=== PATIENT | male | born 1955 | race Caucasian/White ===

== ENCOUNTER 2023-06-13 08:45 | Outpatient (CLI) | payer MEDICARE | END 2023-06-13 08:46 | disposition critical access hospital (66) | LOC: EMS 08:45 | DX: K92.1 Melena (principal) | CPT/HCPCS: A0425; A0429 ==

== ENCOUNTER 2023-06-13 09:08 | Emergency (ER) | payer MEDICARE ==
[2023-06-13 09:38] LABS: BASOPHILS # (AUTO) 0.1 10^3/uL (0.0-0.1); BASOPHILS % (AUTO) 0.7 %; EOSINOPHILS # (AUTO) 0.1 10^3/uL (0.0-0.7); EOSINOPHILS % (AUTO) 1.6 %; HCT - HEMATOCRIT 38.5 % (42.0-52.0); HGB - HEMOGLOBIN 12.8 g/dL (14.0-18.0); LYMPHOCYTES # (AUTO) 0.7 10^3/uL (1.5-3.5); LYMPHOCYTES % (AUTO) 10.5 %; MEAN CORPUSCULAR HEMOGLOBIN 30.4 pg (27.0-31.0); MEAN CORPUSCULAR HGB CONC 33.2 g/dL (32.0-36.0); MEAN CORPUSCULAR VOLUME 91.4 fL (80.0-94.0); MEAN PLATELET VOLUME 9.4 fL (7.4-11.4); MONOCYTES # (AUTO) 0.9 10^3/uL (0.0-1.0); MONOCYTES % (AUTO) 13.6 %; NEUTROPHILS # (AUTO) 5.1 10^3/uL (1.5-6.6); NEUTROPHILS % (AUTO) 73.2 %; PLT - PLATELET COUNT 182 10^3/uL (130-450); RED BLOOD COUNT 4.21 10^6/uL (4.70-6.10); RED CELL DISTRIBUTION WIDTH 14.1 % (12.0-15.0); WHITE BLOOD COUNT 6.9 x10^3/uL (4.8-10.8)
[2023-06-13 09:52] LABS: ALBUMIN 3.1 g/dL (3.2-5.5); ALBUMIN/GLOBULIN RATIO 0.8 (1.0-2.2); BILIRUBIN,TOTAL 0.6 mg/dL (0.2-1.0); CALCIUM 8.9 mg/dL (8.5-10.3); CREATININE 0.8 mg/dL (0.6-1.3); PARTIAL THROMBOPLASTIN TIME 37.5 secs (24.9-33.3); POTASSIUM 4.1 mmol/L (3.5-4.5); TOTAL PROTEIN 7.2 g/dL (6.4-8.9)
[2023-06-13 09:57] LABS: INR 1.3 (0.8-1.2); PT - PROTHROMBIN TIME 14.3 secs (9.9-12.6)
[2023-06-13 10:13] LABS: BILIRUBIN,URINE NEGATIVE (NEGATIVE); GLUCOSE, URINE (UA) NEGATIVE (NEGATIVE); KETONES,URINE (UA) NEGATIVE (NEGATIVE); LEUKOCYTE ESTERASE, URINE LARGE (NEGATIVE); NITRITE,URINE POSITIVE (NEGATIVE); OCCULT BLOOD,URINE MODERATE (NEGATIVE); PH,URINE 6.5 PH (5.0-7.5); PROTEIN,URINE TRACE mg/dL (NEGATIVE); UROBILINOGEN,URINE 0.2 (NORMAL) E.U./dL (NORMAL)
[2023-06-13 10:21] LABS: BACTERIA,URINE Moderate /HPF (None Seen); CLARITY,URINE CLOUDY (CLEAR); SQUAMOUS EPITHELIAL CELL,UR RARE Squamous (<= Few); WBC,URINE >25 /HPF (0-3)
[2023-06-13] MEDS ORDERED: cefTRIAXone 1 GM VIAL IVP STA (10:37)
[2023-06-13] MEDS ORDERED: PANTOPRAZOLE 40 MG VIAL IVP STA (10:37)
--- NOTE | 2023-06-13 10:37 | ED Physician Documentation ---
History of Present Illness - Stated complaint Stated Complaint: BLOODY STOOL - Chief complaint Chief Complaint: Abd Pain - History obtained from History obtained from: Patient - History of Present Illness Timing: Today Pain level max: 0 Pain level now: 0 - Additonal information Additional information: 68-year-old male presents to the emergency department with dark stool x1. Has a history of hepatitis C with cirrhosis. No fever. No hematemesis. No history of varices. No bleeding currently. No abdominal pain. Nothing makes it better or worse. No dyspnea. No chest pain. Eating and drinking normally. Review of Systems Constitutional: denies: Fever, Chills GI: denies: Vomiting, Diarrhea Skin: denies: Rash Musculoskeletal: denies: Neck pain, Back pain Neurologic: denies: Headache PD PAST MEDICAL HISTORY - Past Medical History Past Medical History: Yes GI: Hepatitis - Past Surgical History Past Surgical History: Yes General: Cholecystectomy - Present Medications Home Medications: Ambulatory Orders Medication Instructions Recorded Confirmed Esomeprazole Magnesium [Nexium] 40 mg PO DAILY #30 cap 06/13/23 Furosemide [Lasix] 80 mg PO DAILY 06/13/23 06/13/23 Spironolactone [Aldactone] 100 mg PO DAILY 06/13/23 06/13/23 cephALEXin [Keflex] 500 mg PO Q6H #28 cap 06/13/23 rifAXIMin [Xifaxan] 550 mg PO BID 06/13/23 06/13/23 - Allergies Allergies/Adverse Reactions: Allergies Allergy/AdvReac Type Severity Reaction Status Date / Time No Known Drug Allergies Allergy Verified 06/13/23 09:25 - Social History Does the pt smoke?: Yes Smoking Status: Current every day smoker Does the pt drink ETOH?: No Does the pt have substance abuse?: No - Immunizations Immunizations are current?: Yes PD ED PE NORMAL - Vitals Vital signs reviewed: Yes - General General: Alert and oriented X 3, No acute distress - HEENT HEENT: Moist mucous membranes - Neck Neck: Supple, no meningeal sign - Cardiac Cardiac: RRR, Strong equal pulses - Respiratory Respiratory: No respiratory distress, Clear bilaterally - Abdomen Abdomen: Soft, Non tender, Non distended - Rectal Rectal: Other (dark brown stool in rectal vault. hemorrhoids present. non bleeding. ) - Back Back: No CVA TTP, No spinal TTP - Derm Derm: Warm and dry - Extremities Extremities: No edema, No calf tenderness / cord - Neuro Neuro: Alert and oriented X 3 - Psych Psych: Normal mood, Normal affect Results - Vitals Vitals: Vital Signs - 24 hr 06/13/23 06/13/23 06/13/23 09:20 11:25 12:44 Temperature 36.1 C L 36.7 C Heart Rate 86 73 66 Respiratory 18 16 18 Rate Blood Pressure 149/100 H 137/68 H 139/86 H O2 Saturation 99 98 100 Oxygen O2 Source Room air - Labs Labs: Microbiology 06/13/23 10:19 Occult Blood - Final Stool Laboratory Tests 06/13/23 06/13/23 06/13/23 09:31 09:31 09:31 WBC 6.9 RBC 4.21 L Hgb 12.8 L Hct 38.5 L MCV 91.4 MCH 30.4 MCHC 33.2 RDW 14.1 Plt Count 182 MPV 9.4 Neut # (Auto) 5.1 Lymph # (Auto) 0.7 L [place] # (Auto) 0.9 Eos # (Auto) 0.1 Baso # (Auto) 0.1 Absolute Nucleated RBC 0.00 Nucleated RBC % 0.0 PT 14.3 H INR 1.3 H APTT 37.5 H Sodium 133 L Potassium 4.1 Chloride 103 Carbon Dioxide 26 Anion Gap 4.0 L BUN 25 H Creatinine 0.8 Estimated GFR (MDRD) 96 Glucose 102 Calcium 8.9 Total Bilirubin 0.6 AST 42 ALT 26 Alkaline Phosphatase 115 Total Protein 7.2 Albumin 3.1 L Globulin 4.1 Albumin/Globulin Ratio 0.8 L Lipase 30 Urine Color Urine Clarity Urine pH Ur Specific [place] Urine Protein Urine Glucose (UA) Urine Ketones Urine Occult Blood Urine Nitrite Urine Bilirubin Urine Urobilinogen Ur Leukocyte Esterase Urine RBC Urine WBC Ur Squamous Epith Cells Urine Bacteria Ur Microscopic Review Urine Culture Comments 06/13/23 06/13/23 10:07 12:09 WBC 7.8 RBC 4.58 L Hgb 13.7 L Hct 41.8 L MCV 91.3 MCH 29.9 MCHC 32.8 RDW 14.2 Plt Count 192 MPV 9.6 Neut # (Auto) 5.8 Lymph # (Auto) 1.0 L [place] # (Auto) 0.8 Eos # (Auto) 0.1 Baso # (Auto) 0.0 Absolute Nucleated RBC 0.00 Nucleated RBC % 0.0 PT INR APTT Sodium Potassium Chloride Carbon Dioxide Anion Gap BUN Creatinine Estimated GFR (MDRD) Glucose Calcium Total Bilirubin AST ALT Alkaline Phosphatase Total Protein Albumin Globulin Albumin/Globulin Ratio Lipase Urine Color YELLOW Urine Clarity CLOUDY Urine pH 6.5 Ur Specific [place] 1.020 Urine Protein TRACE Urine Glucose (UA) NEGATIVE Urine Ketones NEGATIVE Urine Occult Blood MODERATE H Urine Nitrite POSITIVE H Urine Bilirubin NEGATIVE Urine Urobilinogen 0.2 (NORMAL) Ur Leukocyte Esterase LARGE H Urine RBC 11-25 H Urine WBC >25 H Ur Squamous Epith Cells RARE Squamous Urine Bacteria Moderate H Ur Microscopic Review INDICATED Urine Culture Comments INDICATED PD Medical Decision Making - ED course Complexity details: reviewed results, re-evaluated patient, considered differential, d/w patient ED course: Patient with an episode of dark stool earlier today. None since. No abdominal pain. No hematemesis. No change in his hemoglobin hematocrit after 2 hours. Normal vitals. Placed on a PPI. No further bleeding here. No history of varices. Recommend endoscopy and colonoscopy as an outpatient. Strict return precautions given. Patient counseled regarding signs and symptoms for which I believe and urgent re-evaluation would be necessary. Patient with good understanding of and agreement to plan and is comfortable going home at this time This document was made in part using voice recognition software. While efforts are made to proofread this document, sound alike and grammatical errors may occur. Departure - Departure Disposition: 01 Home, Self Care Clinical Impression: GI bleed Qualifiers: GI bleed type/associated pathology: unspecified gastrointestinal hemorrhage type Qualified Code(s): K92.2 - Gastrointestinal hemorrhage, unspecified Urinary tract infection Qualifiers: Urinary tract infection type: acute cystitis Hematuria presence: without hematuria Qualified Code(s): N30.00 - Acute cystitis without hematuria Condition: Good Instructions: ED Hematochezia Stable, ED Bleed UGI Stable Follow-Up: your,doctor in 3 days [Other] Prescriptions: cephALEXin [Keflex] 500 mg PO Q6H #28 cap Esomeprazole Magnesium [Nexium] 40 mg PO DAILY #30 cap Comments: Your prescriptions were sent to [facility] in [place]. Please take the medications as prescribed. Please follow-up with your doctor for further care, return for any further bleeding, abdominal pain, fevers, shortness of breath, chest pain or any other new or worrisome symptoms. You should have an outpatient endoscopy and colonoscopy scheduled as well. Forms: PCP List
[2023-06-13 12:13] LABS: BASOPHILS % (AUTO) 0.5 %; EOSINOPHILS # (AUTO) 0.1 10^3/uL (0.0-0.7); EOSINOPHILS % (AUTO) 1.3 %; HCT - HEMATOCRIT 41.8 % (42.0-52.0); HGB - HEMOGLOBIN 13.7 g/dL (14.0-18.0); LYMPHOCYTES % (AUTO) 13.2 %; MEAN CORPUSCULAR HEMOGLOBIN 29.9 pg (27.0-31.0); MEAN CORPUSCULAR HGB CONC 32.8 g/dL (32.0-36.0); MEAN CORPUSCULAR VOLUME 91.3 fL (80.0-94.0); MEAN PLATELET VOLUME 9.6 fL (7.4-11.4); MONOCYTES # (AUTO) 0.8 10^3/uL (0.0-1.0); MONOCYTES % (AUTO) 10.5 %; NEUTROPHILS # (AUTO) 5.8 10^3/uL (1.5-6.6); NEUTROPHILS % (AUTO) 74.2 %; PLT - PLATELET COUNT 192 10^3/uL (130-450); RED BLOOD COUNT 4.58 10^6/uL (4.70-6.10); RED CELL DISTRIBUTION WIDTH 14.2 % (12.0-15.0); WHITE BLOOD COUNT 7.8 x10^3/uL (4.8-10.8)
[2023-06-13 12:49] VITALS: BP 139/86; O2SAT 100
== END 2023-06-13 12:59 | disposition home or self-care (01) ==
LOC: ED 09:08
DX: K92.2 Gastrointestinal hemorrhage, unspecified (principal); N30.00 Acute cystitis without hematuria; F17.200 Nicotine dependence, unspecified, uncomplicated; Z79.899 Other long term (current) drug therapy
CPT/HCPCS: 36415; 80053; 81001; 81003; 82272; 83690; 85025; 85610; 85730; 87077; 87086; 87181; 96374; 96375; 99283

== ENCOUNTER 2023-06-17 10:33 | Emergency (ER) | payer MEDICARE ==
[2023-06-17 11:25] LABS: BASOPHILS % (AUTO) 0.6 %; EOSINOPHILS # (AUTO) 0.1 10^3/uL (0.0-0.7); EOSINOPHILS % (AUTO) 0.7 %; HCT - HEMATOCRIT 39.8 % (42.0-52.0); HGB - HEMOGLOBIN 13.3 g/dL (14.0-18.0); LYMPHOCYTES # (AUTO) 0.8 10^3/uL (1.5-3.5); LYMPHOCYTES % (AUTO) 11.1 %; MEAN CORPUSCULAR HEMOGLOBIN 30.1 pg (27.0-31.0); MEAN CORPUSCULAR HGB CONC 33.4 g/dL (32.0-36.0); MEAN PLATELET VOLUME 9.7 fL (7.4-11.4); MONOCYTES # (AUTO) 0.7 10^3/uL (0.0-1.0); MONOCYTES % (AUTO) 10.7 %; NEUTROPHILS # (AUTO) 5.2 10^3/uL (1.5-6.6); NEUTROPHILS % (AUTO) 76.6 %; PLT - PLATELET COUNT 196 10^3/uL (130-450); RED BLOOD COUNT 4.42 10^6/uL (4.70-6.10); RED CELL DISTRIBUTION WIDTH 13.9 % (12.0-15.0); WHITE BLOOD COUNT 6.8 x10^3/uL (4.8-10.8)
[2023-06-17 11:39] LABS: ALBUMIN 3.3 g/dL (3.2-5.5); ALBUMIN/GLOBULIN RATIO 0.8 (1.0-2.2); CALCIUM 8.3 mg/dL (8.5-10.3); CREATININE 0.8 mg/dL (0.6-1.3); TOTAL PROTEIN 7.6 g/dL (6.4-8.9)
--- NOTE | 2023-06-17 11:40 | ED Physician Documentation ---
History of Present Illness - Stated complaint Stated Complaint: ABD FLUID - Chief complaint Chief Complaint: Abd Pain - History obtained from History obtained from: Patient - Additonal information Additional information: 68-year-old male who has a history of cirrhosis presents requesting paracentesis. The patient has had regular paracenteses in the past but recently moved to the local area after living in [place] a while. He states he has a new primary care appointment coming up but feels like he needs to be drained before they can arrange for it. He denies any new concerns today, has no abdominal tenderness, no fever or chills, no nausea or vomiting. He denies any chest pain or difficulty breathing, no lower extremity swelling. He does state that during his move appear, he did not take his diuretics for several days but has since restarted them. He is no longer using alcohol. Review of Systems Constitutional: reports: Reviewed and negative Cardiac: reports: Reviewed and negative Respiratory: reports: Reviewed and negative GI: reports: Abdominal Swelling. denies: Abdominal Pain, Nausea, Vomiting, Constipation, Diarrhea, Hematemesis, Bloody / black stool : reports: Reviewed and negative Skin: reports: Reviewed and negative Musculoskeletal: reports: Reviewed and negative Neurologic: reports: Reviewed and negative Psychiatric: reports: Reviewed and negative Endocrine: reports: Reviewed and negative Immunocompromised: reports: Reviewed and negative PD PAST MEDICAL HISTORY - Past Medical History Past Medical History: Yes GI: Hepatitis, Cirrhosis, Other - Past Surgical History Past Surgical History: Yes General: Cholecystectomy - Present Medications Home Medications: Ambulatory Orders Medication Instructions Recorded Confirmed Esomeprazole Magnesium [Nexium] 40 mg PO DAILY #30 cap 06/13/23 Furosemide [Lasix] 80 mg PO DAILY 06/13/23 06/13/23 Spironolactone [Aldactone] 100 mg PO DAILY 06/13/23 06/13/23 cephALEXin [Keflex] 500 mg PO Q6H #28 cap 06/13/23 rifAXIMin [Xifaxan] 550 mg PO BID 06/13/23 06/13/23 - Allergies Allergies/Adverse Reactions: Allergies Allergy/AdvReac Type Severity Reaction Status Date / Time No Known Drug Allergies Allergy Verified 06/17/23 10:54 - Social History Does the pt smoke?: Yes Smoking Status: Current every day smoker Does the pt drink ETOH?: No Does the pt have substance abuse?: No - Immunizations Immunizations are current?: Yes PD ED PE NORMAL - Vitals Vital signs reviewed: Yes - General General: Alert and oriented X 3, No acute distress, Well developed/nourished - HEENT HEENT: Atraumatic, Moist mucous membranes - Neck Neck: Supple, no meningeal sign, No JVD - Cardiac Cardiac: RRR, No murmur - Respiratory Respiratory: No respiratory distress, Clear bilaterally - Abdomen Abdomen: Normal bowel sounds, Non tender, Other (Ascites, non tender. active) - Derm Derm: Normal color, Warm and dry, No rash - Extremities Extremities: No deformity, No tenderness to palpate, Normal ROM s pain, No edema, No calf tenderness / cord - Neuro Neuro: Alert and oriented X 3 Eye Opening: Spontaneous Motor: Obeys Commands Verbal: Oriented GCS Score: 15 - Psych Psych: Normal mood, Normal affect Results - Vitals Vitals: Vital Signs - 24 hr 06/17/23 06/17/23 06/17/23 10:51 11:25 13:35 Temperature 35.9 C L Heart Rate 74 71 80 Respiratory 20 20 16 Rate Blood Pressure 150/94 H 148/105 H O2 Saturation 99 100 99 Oxygen O2 Source Room air - Labs Labs: Laboratory Tests 06/17/23 06/17/23 06/17/23 11:20 11:20 11:20 WBC 6.8 RBC 4.42 L Hgb 13.3 L Hct 39.8 L MCV 90.0 MCH 30.1 MCHC 33.4 RDW 13.9 Plt Count 196 MPV 9.7 Neut # (Auto) 5.2 Lymph # (Auto) 0.8 L [place] # (Auto) 0.7 Eos # (Auto) 0.1 Baso # (Auto) 0.0 Absolute Nucleated RBC 0.00 Nucleated RBC % 0.0 PT 13.9 H INR 1.3 H Sodium 134 L Potassium 4.0 Chloride 101 Carbon Dioxide 29 Anion Gap 4.0 L BUN 18 Creatinine 0.8 Estimated GFR (MDRD) 96 Glucose 121 H Calcium 8.3 L Total Bilirubin 1.0 AST 49 H ALT 29 Alkaline Phosphatase 125 H Total Protein 7.6 Albumin 3.3 Globulin 4.3 H Albumin/Globulin Ratio 0.8 L Lipase 22 PD Medical Decision Making - ED course Complexity details: reviewed results, re-evaluated patient, d/w patient ED course: 68-year-old gentleman with a history of cirrhosis and chronic ascites presents due to abdominal ascites and feeling the need for a paracentesis. He had no signs of SBP, is nontoxic, no abdominal tenderness, no fever. He has had multiple paracenteses in the past and tolerated them well. I therefore did obtain labs in preparation for paracentesis, he has stable CBC, CMP and INR. I spoke with the ultrasound and radiology team and they very kindly agreed to do a paracentesis today. It is a patient was taken to have ultrasound-guided paracentesis and tolerated very well With approximately 4 L removed. The patient was monitored postprocedure without any change in vital signs, he states he feels fine and is eager to go home. He has no shortness of breath, no chest pain no abdominal pain at this time. I have advised the patient to establish care locally with a PCP as he will likely need regular outpatient paracenteses. I discussed return precautions if any fever, abdominal pain or new or worsening symptoms. Departure - Departure Disposition: Home, Self Care Clinical Impression: Abdominal ascites Qualifiers: Ascites type: due to alcoholic cirrhosis Qualified Code(s): K70.31 - Alcoholic cirrhosis of liver with ascites Condition: Good Instructions: Paracentesis Dc Comments: You had a paracentesis today. Please Continue your regular home medications. If you develop a fever, abdominal tenderness, vomiting or new concerns, return to the ER otherwise please schedule follow-up with your primary doctor locally as soon as possible as they will need to likely establish regular scheduled paracenteses for you as you have had in the past. Forms: PCP List Discharge Date/Time: 06/17/23 14:00
[2023-06-17 11:49] LABS: INR 1.3 (0.8-1.2); PT - PROTHROMBIN TIME 13.9 secs (9.9-12.6)
[2023-06-17 13:43] VITALS: BP 148/105; O2SAT 99
--- NOTE | 2023-06-18 11:34 | Ultrasound Report ---
PROCEDURE: Abdominal Paracentesis INDICATIONS: ascites, chronic TECHNIQUE: The indications, alternatives, benefits, risks, and complications of the procedure were explained to the patient. Written informed consent was obtained and placed in the chart. The abdomen and pelvis were examined sonographically, and an appropriate site was chosen for paracentesis. The skin was pre pared and draped in the usual sterile fashion, and 1% lidocaine was infiltrated from the skin down th rough the peritoneal surface. A 19-gauge catheter-covered needle was then introduced into the perito nikki space, the catheter was advanced and the needle was withdrawn, and thereafter peritoneal fluid w as withdrawn. The catheter was then removed and a dressing was applied. The fluid was discarded if the clinician did not order diagnostic testing of the fluid. COMPARISON: None FINDINGS: Access site: Right lower quadrant Needle: One-Step centesis catheter with introducer needle. Fluid volume and description: 4.8 L of clear yellow fluid. Fluid sent for diagnostic testing: No Medications: 1% lidocaine for local anaesthesia. Complications: None. IMPRESSION: Successful ultrasound-guided paracentesis. Reviewed by: Yefri Vasquez on 06/18/2023 11:33 AM PST Approved by: Yefri Vasquez on 06/18/2023 11:33 AM PST Station ID: [id number]
== END 2023-06-17 14:00 | disposition home or self-care (01) ==
LOC: ED 10:33
DX: K70.31 Alcoholic cirrhosis of liver with ascites (principal); F17.200 Nicotine dependence, unspecified, uncomplicated
CPT/HCPCS: 36415; 49082; 49083; 80053; 83690; 85025; 85610; 99284

== ENCOUNTER 2024-03-26 22:13 | Outpatient (CLI) | payer MEDICARE | END 2024-03-26 22:14 | disposition critical access hospital (66) | LOC: EMS 22:13 | DX: R10.9 Unspecified abdominal pain (principal); M54.50 Low back pain, unspecified; Z87.442 Personal history of urinary calculi | CPT/HCPCS: A0425; A0429 ==

== ENCOUNTER 2024-03-26 22:36 | Emergency (ER) | payer MEDICARE ==
[2024-03-26] MEDS ORDERED: ONDANSETRON 4 MG/2 ML VIAL IVP PRN (22:56)
--- NOTE | 2024-03-26 22:57 | ED Physician Documentation ---
History of Present Illness - Stated complaint Stated Complaint: R SIDE FLANK PX - Chief complaint Chief Complaint: Back Pain - Additonal information Additional information: 68-year-old male with history of HCV, cirrhosis, ascites, GI bleed, UTI presents with right lumbar pain for 3 days. He had lithotripsy March 04, 2024 at [facility]. He received crystalloid 150mL en route. History clarified from triage. Patient states he has had right flank pain radiating towards his lower abdomen ever since his procedure, gradual worsening. It does seem to be associated with eating, though no clear epigastric pain. It is intermittent. No other clear provoking or palliative factors. No chest pain. No other abdominal pain. No fevers or chills. No redness or rash. No dysuria, hematuria, urinary frequency, diarrhea, constipation, nausea or vomiting, shortness of breath, lightheadedness or syncope. No trauma. No blood in stool. He thinks he has lost 5 to 10 pounds this last month. No other new concerns. ROS Constitutional: no fever, no chills Eyes: no visual disturbance, no discharge Ears, Nose, Mouth, Throat: no rhinorrhea, no sore throat Cardiovascular: no chest pain, no palpitations Respiratory: no cough, no shortness of breath Gastrointestinal: +abdominal pain, no vomiting, no diarrhea Genitourinary: no dysuria, no hematuria Musculoskeletal: +flank pain, no other back pain, no neck stiffness Skin: no rash, no wound Neurological: no focal weakness, no focal numbness PD PAST MEDICAL HISTORY - Past Medical History Past Medical History: Yes GI: Hepatitis, Cirrhosis, Other : Kidney stones Other Past Medical History: Liver failure - Past Surgical History Past Surgical History: Yes General: Cholecystectomy, EGD - Present Medications Home Medications: Ambulatory Orders Medication Instructions Recorded Confirmed Furosemide [Lasix] 80 mg PO DAILY 06/13/23 03/26/24 Spironolactone [Aldactone] 100 mg PO DAILY 06/13/23 03/26/24 rifAXIMin [Xifaxan] 550 mg PO BID 06/13/23 03/26/24 - Allergies Allergies/Adverse Reactions: Allergies Allergy/AdvReac Type Severity Reaction Status Date / Time No Known Drug Allergies Allergy Verified 03/26/24 22:51 - Social History Does the pt smoke?: Yes Smoking Status: Current every day smoker Does the pt drink ETOH?: No Does the pt have substance abuse?: No - Immunizations Immunizations are current?: Yes - POLST Patient has POLST: No PD ED PE NORMAL - Free text exam Free text exam: Const: no acute distress, non toxic appearing; calm, conversant, pleasant Eyes: PERRLA, EOMI ENT: mucous membranes moist Neck: supple, non-tender Resp: no respiratory distress, clear to auscultation bilaterally Card: regular rate and rhythm, no murmurs Abd: non tender diffusely currently, no rigidity or rebound or guarding Back: mild R CVA tenderness, no L CVA tenderness, no T or L spine tenderness Extrem: no deformities, no swelling bilateral lower extremities, 2+ distal pulses all extremities Neuro: ANOx4, admissions gate attendant grossly intact, grossly intact sensation and strength all extremities Skin: no rash, warm and dry Results - Vitals Vitals: Vital Signs - 24 hr 03/26/24 03/26/24 03/27/24 22:36 23:35 00:25 Temperature 37.0 C 36.5 C Heart Rate 67 60 57 L Respiratory 16 16 16 Rate Blood Pressure 153/76 H 108/74 134/73 H O2 Saturation 98 99 99 03/27/24 03/27/24 03/27/24 01:30 01:52 02:18 Temperature 36.9 C 36.0 C L Heart Rate 58 L 56 L 65 Respiratory 15 18 15 Rate Blood Pressure 116/81 H 116/81 H 131/87 H O2 Saturation 98 98 98 03/27/24 03/27/24 03/27/24 02:32 03:13 03:41 Temperature 36.3 C L 36.5 C Heart Rate 63 55 L 56 L Respiratory 17 18 18 Rate Blood Pressure 144/94 H 131/81 H 115/74 O2 Saturation 100 96 100 03/27/24 03/27/24 03/27/24 04:00 04:35 05:00 Temperature 36.7 C 36.1 C L Heart Rate 56 L 57 L 54 L Respiratory 17 17 15 Rate Blood Pressure 128/73 133/78 H 130/71 O2 Saturation 96 97 98 03/27/24 03/27/24 05:29 06:30 Temperature 36.2 C L 36.2 C L Heart Rate 58 L 54 L Respiratory 15 15 Rate Blood Pressure 128/87 H 135/83 H O2 Saturation 97 97 Oxygen O2 Source Room air - Labs Labs: Microbiology 03/27/24 01:40 Occult Blood - Final Stool Laboratory Tests 03/26/24 03/26/24 03/27/24 23:33 23:33 00:05 WBC 9.4 RBC 4.11 L Hgb 12.3 L Hct 37.2 L MCV 90.5 MCH 29.9 MCHC 33.1 RDW 14.1 Plt Count 174 MPV 9.0 Neut # (Auto) 7.2 H Lymph # (Auto) 0.8 L [place] # (Auto) 1.3 H Eos # (Auto) 0.1 Baso # (Auto) 0.1 Absolute Nucleated RBC 0.00 Nucleated RBC % 0.0 PT INR APTT Sodium 136 Potassium 3.8 Chloride 104 Carbon Dioxide 28 Anion Gap 4.0 L BUN 17 Creatinine 0.9 Estimated GFR (MDRD) 84 L Glucose 123 H Lactic Acid Calcium 8.2 L Total Bilirubin 0.9 AST 39 ALT 30 Alkaline Phosphatase 112 Total Protein 7.6 Albumin 2.9 L Globulin 4.7 H Albumin/Globulin Ratio 0.6 L Lipase 37 Urine Color YELLOW Urine Clarity CLEAR Urine pH 6.5 Ur Specific [place] 1.020 Urine Protein NEGATIVE Urine Glucose (UA) NEGATIVE Urine Ketones TRACE Urine Occult Blood NEGATIVE Urine Nitrite NEGATIVE Urine Bilirubin NEGATIVE Urine Urobilinogen >=8.0 H Ur Leukocyte Esterase TRACE H Urine RBC 0-5 Urine WBC 4-5 Ur Squamous Epith Cells MOD Squamous H Urine Bacteria Rare Ur Microscopic Review INDICATED Urine Culture Comments NOT INDICATED 03/27/24 03/27/24 03/27/24 01:29 01:29 01:29 WBC 9.2 RBC 4.02 L Hgb 12.3 L Hct 36.4 L MCV 90.5 MCH 30.6 MCHC 33.8 RDW 13.9 Plt Count 162 MPV 9.3 Neut # (Auto) Lymph # (Auto) [place] # (Auto) Eos # (Auto) Baso # (Auto) Absolute Nucleated RBC Nucleated RBC % PT INR APTT 32.8 Sodium Potassium Chloride Carbon Dioxide Anion Gap BUN Creatinine Estimated GFR (MDRD) Glucose Lactic Acid 1.1 Calcium Total Bilirubin AST ALT Alkaline Phosphatase Total Protein Albumin Globulin Albumin/Globulin Ratio Lipase Urine Color Urine Clarity Urine pH Ur Specific [place] Urine Protein Urine Glucose (UA) Urine Ketones Urine Occult Blood Urine Nitrite Urine Bilirubin Urine Urobilinogen Ur Leukocyte Esterase Urine RBC Urine WBC Ur Squamous Epith Cells Urine Bacteria Ur Microscopic Review Urine Culture Comments 03/27/24 01:29 WBC RBC Hgb Hct MCV MCH MCHC RDW Plt Count MPV Neut # (Auto) Lymph # (Auto) [place] # (Auto) Eos # (Auto) Baso # (Auto) Absolute Nucleated RBC Nucleated RBC % PT 16.9 H INR 1.6 H APTT Sodium Potassium Chloride Carbon Dioxide Anion Gap BUN Creatinine Estimated GFR (MDRD) Glucose Lactic Acid Calcium Total Bilirubin AST ALT Alkaline Phosphatase Total Protein Albumin Globulin Albumin/Globulin Ratio Lipase Urine Color Urine Clarity Urine pH Ur Specific [place] Urine Protein Urine Glucose (UA) Urine Ketones Urine Occult Blood Urine Nitrite Urine Bilirubin Urine Urobilinogen Ur Leukocyte Esterase Urine RBC Urine WBC Ur Squamous Epith Cells Urine Bacteria Ur Microscopic Review Urine Culture Comments - Rads (name of study) CT A/P without contrast Relevant Findings:: EMP independent interpretation of test, See rad report (I agree with radiology reads of imaging on my independent review of imaging. ), Other CT A/P with contrast Relevant Findings:: EMP independent interpretation of test, See rad report (I agree with radiology reads of imaging on my independent review of imaging. ), Other PD Medical Decision Making - ED course ED course: This patients presentation is most suggestive of recurring nephrolithiasis, pyelonephritis, sprain or strain, less likely but possible diverticulitis, intra-abdominal abscess, appendicitis, bowel obstruction, AAA, shingles, in broad differential I have considered including but limited to these. I am initiating workup with CBC, CMP, lipase, urinalysis, CT abdomen pelvis without contrast to better assess for nephrolithiasis. I am giving fluids, Zofran; gracia adam currently declines pain medications. I will closely reassess. Labs: No leukocytosis, anemia 1 point lower than May 2023, no thrombocytopenia. CMP with mild hypocalcemia that corrects with hypoalbuminemia, no LFT elevation, creatinine within normal limits. Lipase reassuring. Urine ultimately with contamination, rare bacteria but in clinical context doubt symptomatic infection; culture still sent. CT: I agree with radiology reads of imaging on my independent review of imaging. "FINDINGS: Image quality: Suboptimal due to lack of intravenous contrast Lower chest: Trace left pleural effusion. Hypertrophy of the intra-articular septum. Calcification of the mitral valve. Liver: Cirrhotic liver morphology. Evaluation mass cannot be performed without contrast. Gallbladder: Surgically absent. Biliary tree: No intrahepatic or extrahepatic dilation, accounting for age. Spleen: No splenomegaly. Pancreas: No pancreatic ductal dilation. Adrenals: No adrenal nodule. Kidneys and ureters: No hydronephrosis. No contour-deforming mass. Horseshoe kidney. No nephrolithiasis. Stomach, bowel and peritoneum: No gastric or small bowel dilation. No abnormal wall thickening. Small volume ascites. Normal appendix. Colonic diverticulosis without evidence of diverticulitis. Lymph nodes: No central or retroperitoneal adenopathy. Vessels: No infrarenal aortic aneurysm. Reproductive organs: Unremarkable. Bladder: Bladder wall thickness is normal, accounting for underdistention. Punctate stone layering within the urinary bladder. Pelvic lymph nodes: No adenopathy by size criteria. Bones: No aggressive osseous abnormality. Other: No significant ventral or inguinal hernia. IMPRESSION: No hydronephrosis or obstructing renal stone. Punctate stones layering within the urinary bladder. This may have been recently passed. No hydronephrosis. Cirrhotic liver morphology. Small volume ascites. Horseshoe kidney. Trace left pleural effusion. Reviewed by: Yefri Vasquez MD on 03/26/2024 11:33 PM PDT " While this suggests possible recent passage of small stones causing pain, out of caution, I am repeating CT with contrast now as no definitive cause, to assess for alternative etiologies such as vascular. CT A/P with contrast: I agree with radiology reads of imaging on my independent review of imaging. "FINDINGS: Image quality: Diagnostic. Lower chest: Facet hypertrophy of the intra-arterial septum. Liver: Cirrhosis. Contrast timing not optimal for detection of hepatocellular carcinoma. Patent portal vein. Questionable enhancing focus at the liver dome measuring 0.7 cm (series 2, image 16). Gallbladder: Surgically absent. Biliary tree: No intrahepatic or extrahepatic dilation, accounting for age. Spleen: No splenomegaly. Pancreas: No pancreatic ductal dilation. Adrenals: No adrenal nodule. Kidneys and ureters: No hydronephrosis. No renal cystic lesion which requires follow up. No solid mass. Horseshoe kidney. Stomach, bowel and peritoneum: No gastric or small bowel dilation. No abnormal wall thickening. Moderate volume ascites. Lymph nodes: No central or retroperitoneal adenopathy. Vessels: No infrarenal aortic aneurysm. Large burden of thrombosis within the SMV and its large branches. PELVIS Reproductive organs: Unremarkable. Bladder: No abnormal wall thickening, accounting for underdistention. Punctate nonobstructing stone in the bladder. Pelvic lymph nodes: No pelvic adenopathy by size criteria. Bones: No aggressive osseous abnormality. Other: Moderate right inguinal hernia containing fat. IMPRESSION: Large burden of thrombus of the SMV and its large branches. The bowel has normal enhancement. Cirrhotic liver morphology. Questionable 7 mm enhancing focus at the liver dome. Recommend outpatient MRI or CT (hepatic mass protocol) to exclude malignancy. Above discussed with Carlos Moreno MD at the time of dictation. Reviewed by: Yefri Vasquez MD on 03/27/2024 1:10 AM PDT " I was called by radiology with above concerning read with SMV thrombosus. I am immediately adding lactate, discussing case with hospitalist and General Surgery, and ordering heparin gtt. On reassessments of patient, he has benign abdomen, no current pain. However, I do suspect this thrombus explains his pain, including pain associated with eating, which could suggest intermittent poor perfusion over the last few weeks. Hospitalist paged at roughly 0112. I spoke with Dr. Jacobs at 0115, and Dr. Zepeda at 0120. Dr. Zepeda recommends transfer to facility with IR availability. We are working on this. STOCKROOM SUPERVISOR contacting [facility] where patient previously was. RN confirming heparin dosing with pharmacy. RN spoke with [facility] pharmacist who confirmed heparin dosing per report to me at 0150. Repeat CBC stable. INR elevated to 1.6. PTT WNL at 32.8. Lactate WNL, reassuring and consistent with currently benign abdomen. Repeat INR/PTT scheduled for 0810 per pharmacy communication via RN. Per staff, may be calling soon to discuss. Patient remains stable, pain free, with benign abdomen. He is awaiting transfer. Signed out to [facility] physician at 0700 with plan to follow up repeat coags, serially reassess, and complete transfer. CRITICAL CARE TIME: outside of procedures, I spent 65 minutes assessing, reassessing, resuscitating this patient, speaking with consultants, and interpreting studies and documentation, in the setting of concern for SMV thrombosis requiring heparin gtt as discussed. 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
[2024-03-26] MEDS: SODIUM CHLORIDE 0.9% 1,000 ML IV STA (23:07)
--- NOTE | 2024-03-26 23:34 | CT Report ---
PROCEDURE: Abdomen/Pelvis WO INDICATIONS: L flank pain, recent lithotripsy 03/04 TECHNIQUE: A CT scan of the abdomen and pelvis was performed without the use of intravenous contrast. Images we re recorded and evaluated at appropriate window settings. Reformats: coronal and sagittal. For radiat ion dose reduction, the following was used: automated exposure control, adjustment of mA and/or kV ac cording to patient size. COMPARISON: 06/17/2023 FINDINGS: Image quality: Suboptimal due to lack of intravenous contrast Lower chest: Trace left pleural effusion. Hypertrophy of the intra-articular septum. Calcification of the mitral valve. Liver: Cirrhotic liver morphology. Evaluation mass cannot be performed without contrast. Gallbladder: Surgically absent. Biliary tree: No intrahepatic or extrahepatic dilation, accounting for age. Spleen: No splenomegaly. Pancreas: No pancreatic ductal dilation. Adrenals: No adrenal nodule. Kidneys and ureters: No hydronephrosis. No contour-deforming mass. Horseshoe kidney. No nephrolithias is. Stomach, bowel and peritoneum: No gastric or small bowel dilation. No abnormal wall thickening. Small volume ascites. Normal appendix. Colonic diverticulosis without evidence of diverticulitis. Lymph nodes: No central or retroperitoneal adenopathy. Vessels: No infrarenal aortic aneurysm. Reproductive organs: Unremarkable. Bladder: Bladder wall thickness is normal, accounting for underdistention. Punctate stone layering wi thin the urinary bladder. Pelvic lymph nodes: No adenopathy by size criteria. Bones: No aggressive osseous abnormality. Other: No significant ventral or inguinal hernia. IMPRESSION: No hydronephrosis or obstructing renal stone. Punctate stones layering within the urinary bladder. This may have been recently passed. No hydroneph rosis. Cirrhotic liver morphology. Small volume ascites. Horseshoe kidney. Trace left pleural effusion. Reviewed by: Yefri Vasquez MD on 03/26/2024 11:33 PM PDT Approved by: Yefri Vasquez MD on 03/26/2024 11:33 PM PDT Station ID: [id number]
[2024-03-26 23:39] LABS: BASOPHILS # (AUTO) 0.1 10^3/uL (0.0-0.1); BASOPHILS % (AUTO) 0.6 %; EOSINOPHILS # (AUTO) 0.1 10^3/uL (0.0-0.7); EOSINOPHILS % (AUTO) 1.1 %; HCT - HEMATOCRIT 37.2 % (42.0-52.0); HGB - HEMOGLOBIN 12.3 g/dL (14.0-18.0); LYMPHOCYTES # (AUTO) 0.8 10^3/uL (1.5-3.5); LYMPHOCYTES % (AUTO) 8.2 %; MEAN CORPUSCULAR HEMOGLOBIN 29.9 pg (27.0-31.0); MEAN CORPUSCULAR HGB CONC 33.1 g/dL (32.0-36.0); MEAN CORPUSCULAR VOLUME 90.5 fL (80.0-94.0); MONOCYTES # (AUTO) 1.3 10^3/uL (0.0-1.0); MONOCYTES % (AUTO) 13.5 %; NEUTROPHILS # (AUTO) 7.2 10^3/uL (1.5-6.6); NEUTROPHILS % (AUTO) 76.3 %; PLT - PLATELET COUNT 174 10^3/uL (130-450); RED BLOOD COUNT 4.11 10^6/uL (4.70-6.10); RED CELL DISTRIBUTION WIDTH 14.1 % (12.0-15.0); WHITE BLOOD COUNT 9.4 x10^3/uL (4.8-10.8)
[2024-03-26 23:55] LABS: ALBUMIN 2.9 g/dL (3.2-5.5); ALBUMIN/GLOBULIN RATIO 0.6 (1.0-2.2); BILIRUBIN,TOTAL 0.9 mg/dL (0.2-1.0); CALCIUM 8.2 mg/dL (8.5-10.3); CREATININE 0.9 mg/dL (0.6-1.3); POTASSIUM 3.8 mmol/L (3.5-4.5); TOTAL PROTEIN 7.6 g/dL (6.4-8.9)
[2024-03-27 00:13] LABS: BILIRUBIN,URINE NEGATIVE (NEGATIVE); GLUCOSE, URINE (UA) NEGATIVE (NEGATIVE); KETONES,URINE (UA) TRACE mg/dL (NEGATIVE); LEUKOCYTE ESTERASE, URINE TRACE (NEGATIVE); NITRITE,URINE NEGATIVE (NEGATIVE); OCCULT BLOOD,URINE NEGATIVE (NEGATIVE); PH,URINE 6.5 PH (5.0-7.5); PROTEIN,URINE NEGATIVE (NEGATIVE); UROBILINOGEN,URINE >=8.0 E.U./dL (NORMAL)
[2024-03-27 00:17] LABS: CLARITY,URINE CLEAR (CLEAR)
[2024-03-27 00:20] LABS: BACTERIA,URINE Rare /HPF (None Seen); RBC,URINE 0-5 /HPF (0-5); SQUAMOUS EPITHELIAL CELL,UR MOD Squamous (<= Few)
[2024-03-27] MEDS ORDERED: iohexoL-300 100 ML VIAL ONE (00:31)
[2024-03-27] MEDS: iohexoL-300 100 ML VIAL IVP ONE (00:58)
--- NOTE | 2024-03-27 01:12 | CT Report ---
PROCEDURE: Abdomen/Pelvis W INDICATIONS: R flank/abd pain, reassessing with contrast CONTRAST: OMNI 300, 100ms TECHNIQUE: After the administration of intravenous contrast, a CT scan of the abdomen and pelvis was performed. Images were recorded and evaluated at appropriate window settings. Reformats: coronal and sagittal. F or radiation dose reduction, the following was used: automated exposure control, adjustment of mA and /or kV according to patient size. COMPARISON: Same day CT. FINDINGS: Image quality: Diagnostic. Lower chest: Facet hypertrophy of the intra-arterial septum. Liver: Cirrhosis. Contrast timing not optimal for detection of hepatocellular carcinoma. Patent yakov l vein. Questionable enhancing focus at the liver dome measuring 0.7 cm (series 2, image 16). Gallbladder: Surgically absent. Biliary tree: No intrahepatic or extrahepatic dilation, accounting for age. Spleen: No splenomegaly. Pancreas: No pancreatic ductal dilation. Adrenals: No adrenal nodule. Kidneys and ureters: No hydronephrosis. No renal cystic lesion which requires follow up. No solid mas s. Horseshoe kidney. Stomach, bowel and peritoneum: No gastric or small bowel dilation. No abnormal wall thickening. Moder ate volume ascites. Lymph nodes: No central or retroperitoneal adenopathy. Vessels: No infrarenal aortic aneurysm. Large burden of thrombosis within the SMV and its large branc hes. PELVIS Reproductive organs: Unremarkable. Bladder: No abnormal wall thickening, accounting for underdistention. Punctate nonobstructing stone i n the bladder. Pelvic lymph nodes: No pelvic adenopathy by size criteria. Bones: No aggressive osseous abnormality. Other: Moderate right inguinal hernia containing fat. IMPRESSION: Large burden of thrombus of the SMV and its large branches. The bowel has normal enhancement. Cirrhotic liver morphology. Questionable 7 mm enhancing focus at the liver dome. Recommend outpatient MRI or CT (hepatic mass protocol) to exclude malignancy. Above discussed with Carlos Moreno MD at the time of dictation. Reviewed by: Yefri Vasquez MD on 03/27/2024 1:10 AM PDT Approved by: Yefri Vasquez MD on 03/27/2024 1:10 AM PDT Station ID: [id number]
[2024-03-27 01:33] LABS: HCT - HEMATOCRIT 36.4 % (42.0-52.0); HGB - HEMOGLOBIN 12.3 g/dL (14.0-18.0); MEAN CORPUSCULAR HEMOGLOBIN 30.6 pg (27.0-31.0); MEAN CORPUSCULAR HGB CONC 33.8 g/dL (32.0-36.0); MEAN CORPUSCULAR VOLUME 90.5 fL (80.0-94.0); MEAN PLATELET VOLUME 9.3 fL (7.4-11.4); RED BLOOD COUNT 4.02 10^6/uL (4.70-6.10); RED CELL DISTRIBUTION WIDTH 13.9 % (12.0-15.0); WHITE BLOOD COUNT 9.2 x10^3/uL (4.8-10.8)
[2024-03-27 01:48] LABS: INR 1.6 (0.8-1.2); PT - PROTHROMBIN TIME 16.9 secs (9.9-12.6)
[2024-03-27] MEDS: HEPARIN 25000UNITS/500ML (D5W) 25,000 UNIT/500 ML BAG IV SCH ×2 (02:08→18:02)
[2024-03-27 08:36] LABS: HCT - HEMATOCRIT 37.2 % (42.0-52.0); HGB - HEMOGLOBIN 12.6 g/dL (14.0-18.0); MEAN CORPUSCULAR HEMOGLOBIN 30.5 pg (27.0-31.0); MEAN CORPUSCULAR HGB CONC 33.9 g/dL (32.0-36.0); MEAN CORPUSCULAR VOLUME 90.1 fL (80.0-94.0); MEAN PLATELET VOLUME 9.3 fL (7.4-11.4); RED BLOOD COUNT 4.13 10^6/uL (4.70-6.10); RED CELL DISTRIBUTION WIDTH 14.1 % (12.0-15.0); WHITE BLOOD COUNT 7.9 x10^3/uL (4.8-10.8)
[2024-03-27 08:41] LABS: INR 1.6 (0.8-1.2); PT - PROTHROMBIN TIME 17.2 secs (9.9-12.6)
--- NOTE | 2024-03-27 09:10 | ED Physician Documentation ---
ED Addendum - Addendum Addendum: 03/27/24 09:09 Patient is comfortable this morning, he states that over the past 5 to 7 days has had pain whenever he eats. He thought that it was secondary to his recent lithotripsy. He is comfortable here. He is maintained on a heparin drip. IV fluids given. Continues to board awaiting transfer for his SMV thrombosis. Discussed the case with Dr. Courtney, hospitalist at [facility], graciously accepts in transfer. COBRA forms completed. Patient will be transferred for further care. Also discussed the case with the on-call interventional radiologist at [facility]. 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
[2024-03-27] MEDS: SODIUM CHLORIDE 0.9% 1,000 ML IV STA (09:26)
--- NOTE | 2024-03-27 19:43 | ED Physician Documentation ---
ED Addendum - Addendum Addendum: 03/27/24 19:43 Signed out at 7:30 PM. Patient has remained stable today with no substantial clinical changes. He has been accepted but is awaiting bed. I am adding repeat CBC, CMP. Repeat CBC, CMP: No leukocytosis, stable appearing anemia, no thrombocytopenia. Mild hyponatremia, LFTs and creatinine remain within normal limits. 03/28/24 03:44 Patient remained stable, comfortable. Transferring in stable condition. Disposition: transferred as above Condition: stable Diagnosis: SMV thrombus
[2024-03-27 19:53] LABS: BASOPHILS # (AUTO) 0.1 10^3/uL (0.0-0.1); BASOPHILS % (AUTO) 0.8 %; EOSINOPHILS # (AUTO) 0.1 10^3/uL (0.0-0.7); EOSINOPHILS % (AUTO) 1.2 %; HCT - HEMATOCRIT 37.2 % (42.0-52.0); HGB - HEMOGLOBIN 12.4 g/dL (14.0-18.0); LYMPHOCYTES # (AUTO) 0.8 10^3/uL (1.5-3.5); LYMPHOCYTES % (AUTO) 10.7 %; MEAN CORPUSCULAR HEMOGLOBIN 30.1 pg (27.0-31.0); MEAN CORPUSCULAR HGB CONC 33.3 g/dL (32.0-36.0); MEAN CORPUSCULAR VOLUME 90.3 fL (80.0-94.0); MEAN PLATELET VOLUME 9.2 fL (7.4-11.4); MONOCYTES % (AUTO) 14.2 %; NEUTROPHILS # (AUTO) 5.3 10^3/uL (1.5-6.6); PLT - PLATELET COUNT 168 10^3/uL (130-450); RED BLOOD COUNT 4.12 10^6/uL (4.70-6.10); WHITE BLOOD COUNT 7.2 x10^3/uL (4.8-10.8)
[2024-03-27 20:24] LABS: ALBUMIN 2.7 g/dL (3.2-5.5); ALBUMIN/GLOBULIN RATIO 0.6 (1.0-2.2); CALCIUM 8.1 mg/dL (8.5-10.3); CREATININE 0.7 mg/dL (0.6-1.3); POTASSIUM 3.8 mmol/L (3.5-4.5); TOTAL PROTEIN 6.9 g/dL (6.4-8.9)
[2024-03-28] MEDS ORDERED: FUROSEMIDE 20 MG TABLET PO STA (00:29)
[2024-03-28 02:28] VITALS: BP 133/65; O2SAT 100
== END 2024-03-28 03:43 | disposition short-term general hospital (02) ==
LOC: EDUNIT# → ED 22:36
DX: K55.059 Acute (reversible) ischemia of intestine, part and extent unspecified (principal); E83.51 Hypocalcemia; F17.200 Nicotine dependence, unspecified, uncomplicated; Z79.899 Other long term (current) drug therapy
CPT/HCPCS: 36415; 74176; 74177; 80053; 81001; 82272; 83605; 83690; 85025; 85027; 85610; 85730; 96374; 96376; 99291; Q9967; 81003; 85520; 87086

== ENCOUNTER 2024-12-07 14:13 | Inpatient (IN) ==
--- NOTE | 2024-12-07 14:26 | ED Physician Documentation ---
History of Present Illness Stated complaint Stated Complaint: WEAKNESS/CONFUSION Chief complaint Chief Complaint: Neuro History obtained from History obtained from: Patient, Family and EMS History of Present Illness Timing: Prior to arrival Additonal information Additional information: Patient is a 69-year-old male brought in by ambulance after family called for concerns for increased confusion. Patient has history of alcohol abuse and is in cirrhosis at this time. He appears to be on Eliquis as well unsure why at this time. He was found with multiple empty beer bottles around him in the house. He is ANO x 1. He denies drinking today. He is unable to answer any acute complaints at this time. Unsure if he has hit his head unsure of where he is or what today's date is. Meds/Allgy Home Medications Ambulatory Orders Medication Instructions Recorded Confirmed rifaximin 550 mg tablet (Xifaxan) 550 mg PO BID 12/07/24 spironolactone 100 mg tablet 100 mg PO DAILY 06/13/23 12/07/24 (Aldactone) apixaban 5 mg tablet (Eliquis) 5 mg PO Q12H 05/02/24 0 12/07/24 furosemide 20 mg tablet 60 mg PO DAILY 12/07/2411/26 lactulose 10 gram/15 mL oral 45 ml PO TID 12/07/24 solution Allergies Allergies Allergy/AdvReac Type Severity Reaction Status Date / Time No Known Drug Allergies Allergy Verified 12/07/24 14:18 PFSH Active Problems All Active Problems (Updated 12/08/24 @ 12:42 by Percy Senior MD) Abdominal pain (Acute) Cirrhosis (Acute) Acute hepatic encephalopathy (Acute) Altered mental status (Acute) Medical History Medical History (Updated 12/08/24 @ 12:42 by Percy Senior MD) DVT (deep venous thrombosis) Hx of hepatitis C Social History Social History (Updated 05/02/24 @ 15:01 by Enoch Ritter RN) Smoking Status: Current every day smoker Number of Years Smoked: 52 Do you dip or chew tobacco?: No Do you vape?: No Patient requests smoking cessation consult: No Initiate information on smoking cessation: No Living arrangement: At home Marital Status: Single Living Condition: With family Support Person: Yes Relationship: Level: Assisted Do you feel safe in your home environment?: Yes Suffered physical, verbal, emotional, or financial abuse?: No History of Abuse: No ETOH Use: None Substance Use: denies use POLST Patient has POLST: No Exam Exam Vital Signs: Vital Signs x48h Temp Pulse Resp BP Pulse Ox 12/07/24 15:32 83 20 163/92 H 99 12/07/24 14:18 36.8 C 70 18 138/60 H 98 Constitutional Patient appears fatigued on exam not answering questions A & O x 1 HENMT normocephalic and head/scalp atraumatic Eyes PERRL, EOMs intact bilaterally and conjunctivae normal Lymph no lymphadenopathy noted Chest inspection of chest normal Respiratory breath sounds equal bilaterally, normal respiratory effort and clear to auscultation bilaterally Cardiovascular normal heart rate noted, regular rhythm noted and no gallop Gastrointestinal Abdomen non-tender on exam, obvious distention appreciated, with positive fluid wave on examination Psychiatry Patient appears fatigued, somnolent on exam A &O x 1 Results Vitals Vitals: Oxygen O2 Source Room air Labs Labs: Microbiology 12/07/24 15:28 Urine Culture - Final Urine,Random No growth Laboratory Tests 12/07/24 12/07/24 12/08/24 14:37 15:28 05:33 WBC 9.3 7.6 RBC 4.93 4.41 L Hgb 14.6 13.0 L Hct 43.8 38.6 L MCV 88.8 87.5 MCH 29.6 29.5 MCHC 33.3 33.7 RDW 17.3 H 17.2 H Plt Count 164 160 MPV 9.2 9.2 Neut # (Auto) 6.7 H Lymph # (Auto) 0.9 L [place] # (Auto) 1.5 H Eos # (Auto) 0.1 Baso # (Auto) 0.1 Absolute Nucleated RBC 0.00 Nucleated RBC % 0.0 PT 17.1 H 18.0 H INR 1.5 H 1.6 H Sodium 134 L 136 Potassium 4.1 3.9 Chloride 103 106 Carbon Dioxide 24 24 Anion Gap 7.0 6.0 BUN 22 H 18 Creatinine 1.0 0.9 Estimated GFR (MDRD) 74 L 84 L Glucose 118 H 123 H Calcium 10.0 8.5 Magnesium 2.1 2.0 Total Bilirubin 2.3 H 2.2 H AST 53 H 43 H ALT 30 24 Alkaline Phosphatase 148 H 121 Ammonia 207.3 H* 164.2 H* Total Protein 8.3 7.0 Albumin 3.4 2.9 L Globulin 4.9 H 4.1 Albumin/Globulin Ratio 0.7 L 0.7 L Lipase 29 TSH 1.53 Urine Color YELLOW Urine Clarity CLEAR Urine pH 7.0 Ur Specific [place] 1.015 Urine Protein NEGATIVE Urine Glucose (UA) NEGATIVE Urine Ketones NEGATIVE Urine Occult Blood NEGATIVE Urine Nitrite NEGATIVE Urine Bilirubin NEGATIVE Urine Urobilinogen 4 H Ur Leukocyte Esterase SMALL H Urine RBC None Seen Urine WBC 6-10 H Urine WBC Clumps PRESENT Ur Squamous Epith Cells FEW Squamous Urine Bacteria Rare Urine Casts 3-5 Fine Granular Ur Microscopic Review INDICATED Urine Culture Comments INDICATED Urine Opiates Screen NEGATIVE Ur Buprenorphine Scrn NEGATIVE Ur Oxycodone Screen NEGATIVE Urine Methadone Screen NEGATIVE Ur Barbiturates Screen NEGATIVE Ur Tricyclics Screen NEGATIVE Ur Phencyclidine Scrn NEGATIVE Ur Amphetamine Screen NEGATIVE U Methamphetamines Scrn NEGATIVE U Benzodiazepines Scrn NEGATIVE Urine Cocaine Screen NEGATIVE U Cannabinoids Screen NEGATIVE Ur Drug Screen Comment CUTOFF CONC BELOW: Ethyl Alcohol < 10.0 Rads (name of study) CT head wo: Relevant Findings:: Final report received and EMP independent interpretation of test Interpretation: No acute intracranial pathology. PD Medical Decision Making ED course Complexity details: reviewed old records and reviewed results ED course: Patient is a 69-year-old male presenting to the emergency department with new confusion. He was brought in by EMS after his sister called the ambulance for worsening confusion that started on . She notes he has continuously gone downhill. She is unsure if he is compliant with his home medications. He has a history of cirrhosis secondary to Hep C according to his sister. SHe is not sure if he has been taking his lactulose, on exam he has GCS of 11 here in the ED he appears somnolent on exam answering questions appropriately ANO x 1. Does follow simple commands and keeps his eyes open on initial examination. He has distended abdomen with positive fluid wave but no tenderness to abdomen. No significant leukocytosis CMP shows no significant electrolyte abnormality. His ammonia level is significantly elevated to 207 here in the ED. Given concerning findings for increased confusion concern for hepatic encephalopathy. Patient CT head is negative I did discuss with hospitalist who is agreeable with admission here in the ED. Patinet and sister are agreeable with this plan. Patient was started on lactulose down here in the ED as beds were pending at time of admission. Discharge Plan Discharge Patient Disposition: 66 [facility] DC/Xfer Condition: Good Clinical Impression: Altered mental status, Acute hepatic encephalopathy Interventions: ED Admission Assessment Last Done: 12/07/24 19:06
[2024-12-07 14:47] LABS: BASOPHILS # (AUTO) 0.1 10^3/uL (0.0-0.1); BASOPHILS % (AUTO) 0.6 %; EOSINOPHILS # (AUTO) 0.1 10^3/uL (0.0-0.7); EOSINOPHILS % (AUTO) 1.1 %; HCT - HEMATOCRIT 43.8 % (42.0-52.0); HGB - HEMOGLOBIN 14.6 g/dL (14.0-18.0); LYMPHOCYTES # (AUTO) 0.9 10^3/uL (1.5-3.5); LYMPHOCYTES % (AUTO) 9.3 %; MEAN CORPUSCULAR HEMOGLOBIN 29.6 pg (27.0-31.0); MEAN CORPUSCULAR HGB CONC 33.3 g/dL (32.0-36.0); MEAN CORPUSCULAR VOLUME 88.8 fL (80.0-94.0); MEAN PLATELET VOLUME 9.2 fL (7.4-11.4); MONOCYTES # (AUTO) 1.5 10^3/uL (0.0-1.0); MONOCYTES % (AUTO) 16.2 %; NEUTROPHILS # (AUTO) 6.7 10^3/uL (1.5-6.6); NEUTROPHILS % (AUTO) 72.5 %; PLT - PLATELET COUNT 164 10^3/uL (130-450); RED BLOOD COUNT 4.93 10^6/uL (4.70-6.10); RED CELL DISTRIBUTION WIDTH 17.3 % (12.0-15.0); WHITE BLOOD COUNT 9.3 x10^3/uL (4.8-10.8)
[2024-12-07 14:51] LABS: INR 1.5 (0.8-1.2); PT - PROTHROMBIN TIME 17.1 secs (9.9-12.6)
[2024-12-07 15:12] LABS: ALBUMIN 3.4 g/dL (3.2-5.5); ALBUMIN/GLOBULIN RATIO 0.7 (1.0-2.2); ALKALINE PHOSPHATASE 148 IU/L (42-121); ALT ALANINE AMINOTRANSFERASE 30 IU/L (10-60); AST ASPARTATE AMINOTRANSFERASE 53 IU/L (10-42); BILIRUBIN,TOTAL 2.3 mg/dL (0.2-1.0); BUN - BLOOD UREA NITROGEN 22 mg/dL (6-20); CARBON DIOXIDE - CO2 24 mmol/L (21-32); CHLORIDE 103 mmol/L (101-111); ETOH - ETHANOL < 10.0 mg/dL; GFR - MDRD 74 (>89); GLUCOSE 118 mg/dL (74-104); LIPASE 29 U/L (11-82); MAGNESIUM 2.1 mg/dL (1.7-2.3); POTASSIUM 4.1 mmol/L (3.5-4.5); SODIUM 134 mmol/L (135-145); TOTAL PROTEIN 8.3 g/dL (6.4-8.9)
--- NOTE | 2024-12-07 15:13 | CT Report ---
PROCEDURE: CT Head WO INDICATIONS: AMS TECHNIQUE: Noncontrast 4.5 mm thick angled axial sections acquired from the foramen magnum to the vertex. For radiation dose reduction, the following was used: automated exposure control, adjustment of mA and/or kV according to patient size. COMPARISON: None. FINDINGS: Image quality: Excellent. CSF spaces: Basal cisterns are patent. No extra-axial fluid collections. Ventricles are normal in size and shape. Brain: No midline shift. No intracranial mass effect or hemorrhage. [place]- white matter interface is normal. Leukoaraiosis, commonly caused by chronic small vessel ischemic disease. Age-related volume loss. Skull and face: Calvarium and visualized facial bones are intact, without suspicious lesions. Sinuses: Visualized sinuses and mastoids are clear. IMPRESSION: No acute intracranial pathology. Reviewed by: Yefri Vasquez MD on 12/07/2024 3:12 PM PDT Approved by: Yefri Vasquez MD on 12/07/2024 3:12 PM PDT Station ID: [id number]
[2024-12-07 15:51] LABS: BILIRUBIN,URINE NEGATIVE (NEGATIVE); GLUCOSE, URINE (UA) NEGATIVE (NEGATIVE); KETONES,URINE (UA) NEGATIVE (NEGATIVE); LEUKOCYTE ESTERASE, URINE SMALL (NEGATIVE); NITRITE,URINE NEGATIVE (NEGATIVE); OCCULT BLOOD,URINE NEGATIVE (NEGATIVE); PROTEIN,URINE NEGATIVE (NEGATIVE); UROBILINOGEN,URINE 4 E.U./dL (NORMAL)
[2024-12-07 15:58] LABS: CLARITY,URINE CLEAR (CLEAR)
[2024-12-07 16:04] LABS: AMPHETAMINE SCREEN,URINE NEGATIVE (NEGATIVE); BARBITURATE SCREEN,UR NEGATIVE (NEGATIVE); BENZODIAZEPINES SCREEN, URINE NEGATIVE (NEGATIVE); BUPRENORPHINE SCREEN, URINE NEGATIVE (NEGATIVE); COCAINE SCREEN URINE NEGATIVE (NEGATIVE); METHADONE SCREEN, URINE NEGATIVE (NEGATIVE); METHAMPHETAMINES SCREEN, URINE NEGATIVE (NEGATIVE); OPIATE SCREEN, URINE NEGATIVE (NEGATIVE); OXYCODONE SCREEN, URINE NEGATIVE (NEGATIVE); THC CANNABINOID SCREEN, URINE NEGATIVE (NEGATIVE); TRICYCLIC ANTIDEPRESSANT,URINE NEGATIVE (NEGATIVE)
[2024-12-07 16:17] LABS: BACTERIA,URINE Rare /HPF (None Seen); RBC,URINE None Seen /HPF (0-5); SQUAMOUS EPITHELIAL CELL,UR FEW Squamous (<= Few); WBC CLUMPS,URINE PRESENT
[2024-12-07 16:18] LABS: CASTS, URINE 3-5 Fine Granular /LPF
[2024-12-07] MEDS ORDERED: SODIUM CHLORIDE 0.9% 1,000 ML IV STA (16:56)
--- NOTE | 2024-12-07 17:10 | HISTORY & PHYSICAL EXAMINATION ---
History of Present Illness Admitted From Admitted From:: Home History Obtained From Records Reviewed: EMR History obtained from: Patient's sister Exam Limitations: Patient is confused History of Present Illness HPI Comment/Other: Patient is a 69-year-old male with a history of known cirrhosis due to hepatitis C who presented due to confusion. His sister, whom he lives with, is at bedside and provides most of the history. She states that starting Saturday, he began to act a little bit funny. He was confused about his surroundings. He is usually very independent, takes his medications on his own. She is not sure if he missed any doses of his lactulose or his rifaximin. She is not sure why he is on Eliquis. He had an appointment with the practical minist[employer] professor today for a liver MRI, which they could not go to because he was so confused, and would not let her dress him. As such, she came in here. Although the patient is alert and oriented x 2, he is very confused, and drifts off or becomes lethargic. He denies any pain. When asked why he is in the hospital, he states it is because he does not feel good, but is unable to elaborate. He does state that he feels confused and out of it. In the emergency room, patient was vitally stable, blood pressure was 138/60, heart rate was 70, respiratory rate was 18, he was saturating 98% on room air. He was also afebrile. Lab work was reviewedhis white count was within normal limits at 9.3. His INR is elevated at 1.5, and PT is elevated at 17.1. His BMP shows a sodium of 134, and his creatinine is within normal limits. Glucose is 118. Bilirubin is mildly elevated at 2.3. AST is also elevated at 53. Alkaline phosphatase is 148. Ammonia is also elevated at 207.3. His UA is negative. And his RUDS as well as alcohol levels are negative. An ultrasound of the abdomen is ordered, remains pending. Meds/Allgy Home Medications Ambulatory Orders Medication Instructions Recorded Confirmed furosemide 80 mg tablet (Lasix) 80 mg PO DAILY 3 05/02/24 rifaximin 550 mg tablet (Xifaxan) 550 mg PO BID 12/07/24 spironolactone 100 mg tablet 100 mg PO DAILY 06/13/23 12/07/24 (Aldactone) albuterol sulfate 90 mcg/actuation 2 puff inhalation Q 6H PRN wheezing 05/02/24 05/02/24 aerosol inhaler apixaban 5 mg tablet (Eliquis) 5 mg PO Q12H 05/02/24 0 12/07/24 nortriptyline 10 mg capsule 10 mg PO HS 05/02/2405/02 apixaban 2.5 mg tablet (Eliquis) 2.5 mg PO BID 12/07/24 furosemide 20 mg tablet 60 mg PO DAILY 12/07/2411/26 lactulose 10 gram/15 mL oral 12/07/24 solution ondansetron HCl 4 mg tablet mg 12/07/24 Allergies Allergies Allergy/AdvReac Type Severity Reaction Status Date / Time No Known Drug Allergies Allergy Verified 12/07/24 14:18 PFSH Active Problems All Active Problems (Updated 12/07/24 @ 17:49 by Aneesh Zaragoza MD) Abdominal pain (Acute) Cirrhosis (Acute) Acute hepatic encephalopathy (Acute) Altered mental status (Acute) Medical History Medical History (Updated 12/07/24 @ 17:49 by Aneesh Zaragoza MD) DVT (deep venous thrombosis) Hx of hepatitis C Social History Social History (Updated 05/02/24 @ 15:01 by Enoch Ritter RN) Smoking Status: Current every day smoker Number of Years Smoked: 52 Do you dip or chew tobacco?: No Do you vape?: No Patient requests smoking cessation consult: No Initiate information on smoking cessation: No Living arrangement: At home Marital Status: Single Living Condition: With family Support Person: Yes Relationship: Do you feel safe in your home environment?: Yes Suffered physical, verbal, emotional, or financial abuse?: No History of Abuse: No ETOH Use: None Substance Use: denies use POLST Patient has POLST: No Review of Systems Patient is confused and unable to answer most questions appropriately. He denies any fevers, chills, nausea, vomiting. He has some abdominal pain upon palpation. Status of ROS: unobtainable due to mental status Exam Exam Vital Signs: Vital Signs x48h Temp Pulse Resp BP Pulse Ox 12/07/24 17:00 97.9 F 75 16 140/77 H 98 12/07/24 15:32 83 20 163/92 H 99 12/07/24 14:18 98.2 F 70 18 138/60 H 98 Constitutional normal general appearance, no apparent distress, average body habitus, no limitations and alert (disoriented to time, confused at times) HENMT normocephalic and head/scalp atraumatic Eyes PERRL, conjunctivae normal (no scleral icterus noted) and no nystagmus Chest inspection of chest normal and palpation of chest normal Respiratory breath sounds equal bilaterally, normal respiratory effort, clear to auscultation bilaterally, no wheezes, no rales and no use of accessory muscles Cardiovascular normal heart rate noted, regular rhythm noted, no gallop, no rub and no murmur Gastrointestinal abdomen soft to palpation, nontender to palpation (tendernss to palpation of RUQ, epigastric region), distended (distended) and hepatosplenomegaly noted Genitourinary no CVA tenderness Extremities normal to inspection and normal to palpation Neurology no movement abnormality noted, no focal motor deficit noted, no sensory deficits noted and speech normal Psychiatry orientation abnormal (disoriented to time) and affect normal Skin skin color abnormal and jaundice noted Conclusion/Plan Problem List (1) Acute hepatic encephalopathy: Plan: Patient presented with confusion, at times lethargy, per sister. Unclear if patient has been taking his home lactulose and rifaximin. Ammonia is elevated at 207.3. Continue lactulose 20 mg 3 times daily, as well as his rifaximin 550 mg twice daily. Continue to trend ammonia, and watch his mental status. Alcohol level, RUDS is negative. CT head was also negative. TSH ordered, pending. (2) Abdominal pain: Plan: Patient with tenderness to palpation of the abdomen in the right upper quadrant, as well as the epigastric region. Ultrasound ordered to assess for ascites, need for paracentesis. Will treat as SBP at this time as he has a long history of ascites requiring drainage, and he is having abdominal pain. No leukocytosis at this time. Rocephin started. Qualifiers: Abdominal location: unspecified location Qualified Code(s): R10.9 - Unspecified abdominal pain (3) Hx of hepatitis C: Plan: Patient has a history of hepatitis C in his adolescence, which was treated, which resulted in cirrhosis. He actively follows with a [employer] professor, and is on the transplant list. Continue spironolactone and Lasix. Continue close follow-up in the outpatient setting. (4) Cirrhosis: Plan: Patient has a history of hepatitis C in his adolescence, which resulted in cirrhosis. He actively follows with a [employer] professor, and is on the transplant list. Continue spironolactone and Lasix. Continue close follow-up in the outpatient setting. Qualifiers: Ascites presence: with ascites Hepatic cirrhosis type: unspecified hepatic cirrhosis Qualified Code(s): K74.60 - Unspecified cirrhosis of liver; R18.8 - Other ascites (5) DVT (deep venous thrombosis): Plan: Patient has a history of a DVT requiring Eliquis, unclear where. Due to his underlying liver disease, he is already coagulated. Hold Eliquis at this time. Qualifiers: Chronicity: unspecified DVT location: non-extremity vein Qualified Code(s): I82.90 - Acute embolism and thrombosis of unspecified vein Lab Results Lab results reviewed: Yes 12/07/24 14:37 12/07/24 14:37 Diagnostic Imaging Results Diagnostic Imaging Results: positive Final report reviewed Core Measures Anticipated LOS I expect patient to be DC'd or transferred within 96 hours.: Yes Issues Hospital Issues and Management Plan: None anticipated. DVT/VTE - Prophylaxis VTE/DVT Device ordered at admit?: No Not Ordered - Medical Reason: Contraindicated VTE/DVT Prophylaxis med ordered at admit?: No Not Ordered - Medical Reason: Contraindicated
[2024-12-07] MEDS: SODIUM CHLORIDE 0.9% 1,000 ML IV SCH (17:16)
[2024-12-07] MEDS: LACTULOSE 10 GM /15 ML UDC PO SCH (18:35)
[2024-12-07] MEDS ORDERED: ONDANSETRON ODT 4 MG TABLET TL PRN (19:31)
[2024-12-07] MEDS ORDERED: SODIUM CHLORIDE FLUSH 0.9% 10 ML SYRINGE IVP PRN (19:31)
[2024-12-07] MEDS ORDERED: ONDANSETRON 4 MG/2 ML VIAL IVP PRN (19:31)
--- NOTE | 2024-12-07 19:56 | Ultrasound Report ---
PROCEDURE: US Abdomen Limited INDICATIONS: elevated bilirubin, known cirrhosis TECHNIQUE: Real-time focused scanning was performed of the abdomen, with image documentation. COMPARISONS: CT of abdomen and pelvis dated 03/27/2024. FINDINGS: Liver: Liver is normal in size. Heterogeneously echogenic liver parenchyma is seen with a lobulated liver contour. Gallbladder: Bladder is surgically absent. Biliary ducts: Intrahepatic bile ducts are non-dilated. Extrahepatic bile duct is not well seen due to overlying bowel gas. No obvious distended biliary duct is seen. Pancreas: Not well visualized due to overlying bowel gas. 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 Right kidney measures 11.9 cm long. No hydronephrosis. 6 mm nonobstructing stone is seen in right kidney. No solid masses. No complex renal cystic lesions which require follow-up. IVC: Intrahepatic inferior vena cava is patent. Miscellaneous: No free abdominal fluid. IMPRESSION: 1. Limited study due to patient's condition and overlying bowel gas. 2. Cirrhotic appearing liver. No discrete hepatic lesion. No significant ascites fluid. 3. Prior cholecystectomy. No gross biliary ductal dilatation. 4. Horseshoe kidney. 6 mm nonobstructing right renal stone. No hydronephrosis. Reviewed by: Oswald Nina MD on 12/07/2024 7:54 PM PDT Approved by: Oswald Nina MD on 12/07/2024 7:54 PM PDT Station ID: [id number]
[2024-12-07] MEDS: rifAXIMin 550 MG TABLET PO SCH (22:20)
[2024-12-07] MEDS: NORTRIPTYLINE 10 MG PO SCH (22:21)
[2024-12-07] MEDS: SODIUM CHLORIDE FLUSH 0.9% 10 ML SYRINGE IVP SCH (23:50)
[2024-12-08 05:49] LABS: HCT - HEMATOCRIT 38.6 % (42.0-52.0); MEAN CORPUSCULAR HEMOGLOBIN 29.5 pg (27.0-31.0); MEAN CORPUSCULAR HGB CONC 33.7 g/dL (32.0-36.0); MEAN CORPUSCULAR VOLUME 87.5 fL (80.0-94.0); MEAN PLATELET VOLUME 9.2 fL (7.4-11.4); RED BLOOD COUNT 4.41 10^6/uL (4.70-6.10); RED CELL DISTRIBUTION WIDTH 17.2 % (12.0-15.0); WHITE BLOOD COUNT 7.6 x10^3/uL (4.8-10.8)
[2024-12-08 06:01] LABS: ALBUMIN 2.9 g/dL (3.2-5.5); ALBUMIN/GLOBULIN RATIO 0.7 (1.0-2.2); BILIRUBIN,TOTAL 2.2 mg/dL (0.2-1.0); CALCIUM 8.5 mg/dL (8.5-10.3); CREATININE 0.9 mg/dL (0.6-1.3); POTASSIUM 3.9 mmol/L (3.5-4.5)
[2024-12-08 06:03] LABS: INR 1.6 (0.8-1.2)
[2024-12-08] MEDS: SPIRONOLACTONE 25 MG TABLET PO SCH (08:19)
[2024-12-08] MEDS: cefTRIAXone 1 GM VIAL IVP SCH (08:19)
[2024-12-08] MEDS: FUROSEMIDE 20 MG TABLET PO SCH (08:19)
[2024-12-08] MEDS: FUROSEMIDE 40 MG TABLET PO SCH (08:20)
[2024-12-08] MEDS: APIXABAN 2.5 MG TABLET PO SCH (08:20)
--- NOTE | 2024-12-08 12:26 | PROVIDER PROGRESS NOTE ---
Subjective Prog Note Date Prog Note Date: 12/08/24 Prog Note Time: 12:21 Subjective Pt reports feeling: Improved Subjective: Subjectively the patient states that he is doing well however his insight is limited. He states that he is supposed to be at another doctor office later today. He does not seem to be aware of why he is here. In the middle of the conversation he interrupts and says he has to go to the bathroom but he denies pain. Current Medications Current Medications Current Medications: Current Medications Generic Name Dose Route Start Last Admin Trade Name Freq PRN Reason Stop Dose Admin Apixaban 2.5 mg 12/08/24 09:00 12/08/24 08:20 Apixaban 2.5 Mg Tablet PO 2.5 mg BID RHEA Administration Ceftriaxone Sodium 1 gm 12/08/24 09:00 12/08/24 08:19 Ceftriaxone 1 Gm Vial IVP 1 gm DAILY RHEA Administration Furosemide 60 mg 12/08/24 09:00 12/08/24 08:19 Furosemide 20 Mg Tablet PO 60 mg DAILY RHEA Administration Lactulose 20 gm 12/07/24 18:00 12/08/24 05:55 Lactulose 10 Gm /15 Ml Udc PO 20 gm TID RHEA Administration Ondansetron HCl 4 mg 12/07/24 19:31 Ondansetron Odt 4 Mg Tablet TL Q6HR PRN Nausea / Vomiting Ondansetron HCl 4 mg 12/07/24 19:31 Ondansetron 4 Mg/2 Ml Vial IVP Q6HR PRN Nausea / Vomiting Patient Own Med ( 1 each 12/08/24 21:00 Nortriptyline 10 Mg PO Capsule) RHEA Rifaximin 550 mg 12/07/24 21:00 12/08/24 08:20 Rifaximin 550 Mg Tablet PO 550 mg BID RHEA Administration Sodium Chloride 10 ml 12/07/24 19:31 Sodium Chloride Flush 0.9% 10 Ml Syringe IVP PRN PRN NEEDED PER PROVIDER ORDERS Sodium Chloride 10 ml 12/08/24 01:00 12/08/24 08:20 Sodium Chloride Flush 0.9% 10 Ml Syringe IVP Not Given 0100,0900,1700 RHEA Spironolactone 100 mg 12/08/24 09:00 12/08/24 08:19 Spironolactone 25 Mg Tablet PO 100 mg DAILY RHEA Administration Objective Vital Signs/Intake & Output Reviewed Vital Signs: Yes Vital Signs: Vital Signs x48h Temp Pulse Resp BP Pulse Ox 12/08/24 08:03 36.3 C L 66 20 132/74 H 95 Intake & Output: Intake & Output 12/05/24 12/06/24 12/07/24 12/08/24 23:59 23:59 23:59 23:59 Intake Total 336 / 336 2823 / 2823 Output Total 200 / 200 Balance 336 / 336 2623 / 2623 Weight (kg) 89.5 kg Lab Results 12/08/24 05:33 12/08/24 05:33 Other Labs: Lab Results x24hrs 12/08/24 12/07/24 12/07/24 Range/Units 05:33 15:28 14:37 WBC 7.6 9.3 (4.8-10.8) x10^3/uL RBC 4.41 L 4.93 (4.70-6.10) 10^6/uL Hgb 13.0 L 14.6 (14.0-18.0) g/dL Hct 38.6 L 43.8 (42.0-52.0) % MCV 87.5 88.8 (80.0-94.0) fL MCH 29.5 29.6 (27.0-31.0) pg MCHC 33.7 33.3 (32.0-36.0) g/dL RDW 17.2 H 17.3 H (12.0-15.0) % Plt Count 160 164 (130-450) 10^3/uL MPV 9.2 9.2 (7.4-11.4) fL Neut # (Auto) 6.7 H (1.5-6.6) 10^3/uL Lymph # (Auto) 0.9 L (1.5-3.5) 10^3/uL [place] # (Auto) 1.5 H (0.0-1.0) 10^3/uL Eos # (Auto) 0.1 (0.0-0.7) 10^3/uL Baso # (Auto) 0.1 (0.0-0.1) 10^3/uL Absolute Nucleated RBC 0.00 x10^3/uL Nucleated RBC % 0.0 /100WBC PT 18.0 H 17.1 H (9.9-12.6) secs INR 1.6 H 1.5 H (0.8-1.2) Sodium 136 134 L (135-145) mmol/L Potassium 3.9 4.1 (3.5-4.5) mmol/L Chloride 106 103 (101-111) mmol/L Carbon Dioxide 24 24 (21-32) mmol/L Anion Gap 6.0 7.0 (6-13) BUN 18 22 H (6-20) mg/dL Creatinine 0.9 1.0 (0.6-1.3) mg/dL Estimated GFR (MDRD) 84 L 74 L (>89) Glucose 123 H 118 H (74-104) mg/dL Calcium 8.5 10.0 (8.5-10.3) mg/dL Magnesium 2.0 2.1 (1.7-2.3) mg/dL Total Bilirubin 2.2 H 2.3 H (0.2-1.0) mg/dL AST 43 H 53 H (10-42) IU/L ALT 24 30 (10-60) IU/L Alkaline Phosphatase 121 148 H (42-121) IU/L Ammonia 164.2 H* 207.3 H* (18-72) umol/L Total Protein 7.0 8.3 (6.4-8.9) g/dL Albumin 2.9 L 3.4 (3.2-5.5) g/dL Globulin 4.1 4.9 H (2.1-4.2) g/dL Albumin/Globulin Ratio 0.7 L 0.7 L (1.0-2.2) Lipase 29 (11-82) U/L TSH 1.53 (0.34-5.60) uIU/mL Urine Color YELLOW Urine Clarity CLEAR (CLEAR) Urine pH 7.0 (5.0-7.5) PH Ur Specific [place] 1.015 (1.002-1.030) Urine Protein NEGATIVE (NEGATIVE) mg/dL Urine Glucose (UA) NEGATIVE (NEGATIVE) mg/dL Urine Ketones NEGATIVE (NEGATIVE) mg/dL Urine Occult Blood NEGATIVE (NEGATIVE) Urine Nitrite NEGATIVE (NEGATIVE) Urine Bilirubin NEGATIVE (NEGATIVE) Urine Urobilinogen 4 H (NORMAL) E.U./dL Ur Leukocyte Esterase SMALL H (NEGATIVE) Urine RBC None Seen (0-5) /HPF Urine WBC 6-10 H (0-3) /HPF Urine WBC Clumps PRESENT Ur Squamous Epith Cells FEW Squamous (<= Few) Urine Bacteria Rare (None Seen) /HPF Urine Casts 3-5 Fine Granular /LPF Ur Microscopic Review INDICATED Urine Culture Comments INDICATED Urine Opiates Screen NEGATIVE (NEGATIVE) Ur Buprenorphine Scrn NEGATIVE (NEGATIVE) Ur Oxycodone Screen NEGATIVE (NEGATIVE) Urine Methadone Screen NEGATIVE (NEGATIVE) Ur Barbiturates Screen NEGATIVE (NEGATIVE) Ur Tricyclics Screen NEGATIVE (NEGATIVE) Ur Phencyclidine Scrn NEGATIVE (NEGATIVE) Ur Amphetamine Screen NEGATIVE (NEGATIVE) U Methamphetamines Scrn NEGATIVE (NEGATIVE) U Benzodiazepines Scrn NEGATIVE (NEGATIVE) Urine Cocaine Screen NEGATIVE (NEGATIVE) U Cannabinoids Screen NEGATIVE (NEGATIVE) Ur Drug Screen Comment CUTOFF CONC BELOW: Ethyl Alcohol < 10.0 mg/dL Diagnostic Imaging Diagnostic Imaging Results: positive Final report reviewed Assessment/Plan Problem List (1) Acute hepatic encephalopathy: Impression: * Improved but still somewhat confused * Ammonia trending down but still elevated at 164 * Continue lactulose and titrate to 3 bowel movements per day * Continue rifaximin (2) Abdominal pain: Impression: * Resolved Qualifiers: Abdominal location: unspecified location Qualified Code(s): R10.9 - Unspecified abdominal pain (3) Hx of hepatitis C: Impression: * Chronic (4) Cirrhosis: Impression: * Chronic cirrhosis currently relatively well compensated with the exception of hepatic encephalopathy * Resume home medications including spironolactone and lactulose and discontinue IV fluids Qualifiers: Hepatic cirrhosis type: unspecified hepatic cirrhosis Ascites presence: with ascites Qualified Code(s): K74.60 - Unspecified cirrhosis of liver; R18.8 - Other ascites (5) DVT (deep venous thrombosis): Impression: * Resume eliquis Qualifiers: DVT location: non-extremity vein Chronicity: chronic Qualified Code(s): I82.91 - Chronic embolism and thrombosis of unspecified vein
--- NOTE | 2024-12-08 15:11 | PHARMACY PROGRESS NOTE ---
Best Possible Medication History Admit Date and Time: 12/08/24 1122 Home Medications Medication Instructions Recorded Confirmed Type rifaximin 550 mg tablet (Xifaxan) 550 mg PO BID 12/07/24 History spironolactone 100 mg tablet 100 mg PO DAILY 06/13/23 12/07/24 History (Aldactone) apixaban 5 mg tablet (Eliquis) 5 mg PO Q12H 05/02/24 0 12/07/24 History furosemide 20 mg tablet 60 mg PO DAILY 12/07/2411/26 History lactulose 10 gram/15 mL oral 45 ml PO TID 12/07/24 History solution Processed by: Pharmacy Medications reviewed in ED?: No Medication History completed: Yes Patient Interview: Pt unable to participate (PATIENT CONFUSED) Secondary Source(s): Pharmacy records (Called and spoke with [facility] to verify medications have been picked up and clarified eliquis dosing) and Insurance records [facility] Statement: As the person ultimately responsible for medication therapy, providers are able to order a medication from an existing home medication list in [facility] via the "Reconcile Routine" prior to Confirmation of that medication by learning support specialist. Such practice is discouraged except when the physician, in their clinical judgment, deems that a medical need exists for a medication without regard to previous use.
[2024-12-08] MEDS: NORTRIPTYLINE 10 MG PO SCH (21:29)
[2024-12-09 08:10] LABS: BASOPHILS # (AUTO) 0.1 10^3/uL (0.0-0.1); EOSINOPHILS # (AUTO) 0.2 10^3/uL (0.0-0.7); EOSINOPHILS % (AUTO) 2.9 %; HCT - HEMATOCRIT 40.8 % (42.0-52.0); HGB - HEMOGLOBIN 14.1 g/dL (14.0-18.0); LYMPHOCYTES # (AUTO) 0.9 10^3/uL (1.5-3.5); LYMPHOCYTES % (AUTO) 12.2 %; MEAN CORPUSCULAR HEMOGLOBIN 30.3 pg (27.0-31.0); MEAN CORPUSCULAR HGB CONC 34.6 g/dL (32.0-36.0); MEAN CORPUSCULAR VOLUME 87.6 fL (80.0-94.0); MEAN PLATELET VOLUME 9.7 fL (7.4-11.4); MONOCYTES # (AUTO) 1.1 10^3/uL (0.0-1.0); MONOCYTES % (AUTO) 15.2 %; NEUTROPHILS % (AUTO) 68.4 %; PLT - PLATELET COUNT 146 10^3/uL (130-450); RED BLOOD COUNT 4.66 10^6/uL (4.70-6.10); RED CELL DISTRIBUTION WIDTH 17.1 % (12.0-15.0); WHITE BLOOD COUNT 7.3 x10^3/uL (4.8-10.8)
[2024-12-09 08:22] LABS: CALCIUM 8.7 mg/dL (8.5-10.3); POTASSIUM 3.7 mmol/L (3.5-4.5)
--- NOTE | 2024-12-09 09:25 | PROVIDER PROGRESS NOTE ---
Subjective Prog Note Date Prog Note Date: 12/08/24 Prog Note Time: 12:21 Subjective Pt reports feeling: Improved Subjective: Patient states he is feeling better, he is able to Recall some parts of the history, but still was not exactly quite sure why he was brought to the hospital. When informed, he is on seems to agree with the idea that he has been confused lately. Otherwise he denies any physical complaints. Current Medications Current Medications Current Medications: Current Medications Generic Name Dose Route Start Last Admin Trade Name [place] PRN Reason Stop Dose Admin Apixaban 2.5 mg 12/08/24 09:00 12/09/24 08:03 Apixaban 2.5 Mg Tablet PO 2.5 mg BID RHEA Administration Ceftriaxone Sodium 1 gm 12/08/24 09:00 12/09/24 08:02 Ceftriaxone 1 Gm Vial IVP 1 gm DAILY RHEA Administration Furosemide 60 mg 12/08/24 09:00 12/09/24 08:03 Furosemide 20 Mg Tablet PO 60 mg DAILY RHEA Administration Lactulose 20 gm 12/07/24 18:00 12/09/24 06:08 Lactulose 10 Gm /15 Ml Udc PO 20 gm TID RHEA Administration Ondansetron HCl 4 mg 12/07/24 19:31 Ondansetron Odt 4 Mg Tablet TL Q6HR PRN Nausea / Vomiting Ondansetron HCl 4 mg 12/07/24 19:31 Ondansetron 4 Mg/2 Ml Vial IVP Q6HR PRN Nausea / Vomiting Patient Own Med ( 1 each 12/08/24 21:00 12/08/24 21:29 Nortriptyline 10 Mg PO Not Given Capsule) RHEA Rifaximin 550 mg 12/07/24 21:00 12/09/24 08:03 Rifaximin 550 Mg Tablet PO 550 mg BID RHEA Administration Sodium Chloride 10 ml 12/07/24 19:31 Sodium Chloride Flush 0.9% 10 Ml Syringe IVP PRN PRN NEEDED PER PROVIDER ORDERS Sodium Chloride 10 ml 12/08/24 01:00 12/09/24 08:04 Sodium Chloride Flush 0.9% 10 Ml Syringe IVP 10 ml 0100,0900,1700 RHEA Administration Spironolactone 100 mg 12/08/24 09:00 12/09/24 08:03 Spironolactone 25 Mg Tablet PO 100 mg DAILY RHEA Administration Objective Vital Signs/Intake & Output Reviewed Vital Signs: Yes Vital Signs: Vital Signs x48h Temp Pulse Resp BP Pulse Ox 12/09/24 07:14 36.5 C 80 18 106/71 96 Intake & Output: Intake & Output 12/06/24 12/07/24 12/08/24 12/09/24 23:59 23:59 23:59 23:59 Intake Total 336 / 336 3803 / 3803 220 / 220 Output Total 200 / 200 Balance 336 / 336 3603 / 3603 220 / 220 Weight (kg) 89.5 kg Objective General Appearance: positive No acute distress and Alert Eyes Bilateral: positive Normal inspection Neck: positive Nml inspection Respiratory: positive No respiratory distress and Breath sounds nml; negative Wheezes Cardiovascular: positive Regular rate & rhythm, No murmur and No gallop Abdomen: positive Non-tender, No organomegaly and Nml bowel sounds; negative No distention Skin: positive Color nml Extremities: positive Non-tender, Nml appearance and No pedal edema Neurologic/Psychiatric: positive CN's nml (2-12), Motor nml, Mood/affect nml and Disoriented to time; negative Disoriented to person, Disoriented to place, Slurred/abnml speech or Depressed mood/affect Lab Results 12/09/24 08:00 12/09/24 08:00 Other Labs: Lab Results x24hrs 12/09/24 Range/Units 08:00 WBC 7.3 (4.8-10.8) x10^3/uL RBC 4.66 L (4.70-6.10) 10^6/uL Hgb 14.1 (14.0-18.0) g/dL Hct 40.8 L (42.0-52.0) % MCV 87.6 (80.0-94.0) fL MCH 30.3 (27.0-31.0) pg MCHC 34.6 (32.0-36.0) g/dL RDW 17.1 H (12.0-15.0) % Plt Count 146 (130-450) 10^3/uL MPV 9.7 (7.4-11.4) fL Neut # (Auto) 5.0 (1.5-6.6) 10^3/uL Lymph # (Auto) 0.9 L (1.5-3.5) 10^3/uL [place]ing # (Auto) 1.1 H (0.0-1.0) 10^3/uL Eos # (Auto) 0.2 (0.0-0.7) 10^3/uL Baso # (Auto) 0.1 (0.0-0.1) 10^3/uL Absolute Nucleated RBC 0.00 x10^3/uL Nucleated RBC % 0.0 /100WBC Sodium 130 L (135-145) mmol/L Potassium 3.7 (3.5-4.5) mmol/L Chloride 102 (101-111) mmol/L Carbon Dioxide 22 (21-32) mmol/L Anion Gap 6.0 (6-13) BUN 18 (6-20) mg/dL Creatinine 1.0 (0.6-1.3) mg/dL Estimated GFR (MDRD) 74 L (>89) Glucose 111 H (74-104) mg/dL Calcium 8.7 (8.5-10.3) mg/dL Ammonia 94.7 H* (18-72) umol/L Diagnostic Imaging Diagnostic Imaging Results: positive Final report reviewed Assessment/Plan Problem List (1) Acute hepatic encephalopathy: Impression: * Improved but still somewhat confused * Ammonia trending down, 96 * Continue lactulose and titrate to 3 bowel movements per day * Continue rifaximin * Anticipate d/c in 1-2 days as NH3 trends down, mental clarity improves (2) Abdominal pain: Impression: * Resolved Qualifiers: Abdominal location: unspecified location Qualified Code(s): R10.9 - Unspecified abdominal pain (3) Hx of hepatitis C: Impression: * Chronic (4) Cirrhosis: Impression: * Chronic cirrhosis currently relatively well compensated with the exception of hepatic encephalopathy * Resume home medications including spironolactone and lactulose and discontinue IV fluids Qualifiers: Hepatic cirrhosis type: unspecified hepatic cirrhosis Ascites presence: with ascites Qualified Code(s): K74.60 - Unspecified cirrhosis of liver; R18.8 - Other ascites (5) DVT (deep venous thrombosis): Impression: * Resume eliquis Qualifiers: DVT location: non-extremity vein Chronicity: chronic Qualified Code(s): I82.91 - Chronic embolism and thrombosis of unspecified vein
[2024-12-09] MEDS: LACTULOSE 10 GM /15 ML UDC PO SCH (13:29)
[2024-12-10 05:30] LABS: BASOPHILS # (AUTO) 0.1 10^3/uL (0.0-0.1); BASOPHILS % (AUTO) 0.7 %; EOSINOPHILS # (AUTO) 0.2 10^3/uL (0.0-0.7); EOSINOPHILS % (AUTO) 2.2 %; HCT - HEMATOCRIT 39.7 % (42.0-52.0); HGB - HEMOGLOBIN 13.6 g/dL (14.0-18.0); LYMPHOCYTES # (AUTO) 1.1 10^3/uL (1.5-3.5); LYMPHOCYTES % (AUTO) 13.7 %; MEAN CORPUSCULAR HEMOGLOBIN 29.7 pg (27.0-31.0); MEAN CORPUSCULAR HGB CONC 34.3 g/dL (32.0-36.0); MEAN CORPUSCULAR VOLUME 86.7 fL (80.0-94.0); MEAN PLATELET VOLUME 9.1 fL (7.4-11.4); MONOCYTES # (AUTO) 1.2 10^3/uL (0.0-1.0); MONOCYTES % (AUTO) 14.9 %; NEUTROPHILS # (AUTO) 5.6 10^3/uL (1.5-6.6); NEUTROPHILS % (AUTO) 68.3 %; PLT - PLATELET COUNT 146 10^3/uL (130-450); RED BLOOD COUNT 4.58 10^6/uL (4.70-6.10); RED CELL DISTRIBUTION WIDTH 17.2 % (12.0-15.0); WHITE BLOOD COUNT 8.3 x10^3/uL (4.8-10.8)
[2024-12-10 05:50] LABS: CALCIUM 8.6 mg/dL (8.5-10.3); POTASSIUM 3.9 mmol/L (3.5-4.5)
[2024-12-10] MEDS: LACTULOSE 10 GM /15 ML UDC PO SCH (06:39)
[2024-12-10] MEDS: APIXABAN 2.5 MG TABLET PO SCH (08:15)
[2024-12-10] MEDS: rifAXIMin 550 MG TABLET PO SCH (08:19)
[2024-12-10] MEDS: BENZONATATE 100 MG CAPSULE PO PRN (08:19)
--- NOTE | 2024-12-10 18:06 | PROVIDER PROGRESS NOTE ---
Subjective Prog Note Date Prog Note Date: 12/10/24 Prog Note Time: 18:04 Subjective Pt reports feeling: Improved Subjective: Patient states he is feeling better, denies c/o. Reports 3 BM today. He does appear more clear and alert. Current Medications Current Medications Current Medications: Current Medications Generic Name Dose Route Start Last Admin Trade Name Freq PRN Reason Stop Dose Admin Apixaban 2.5 mg 12/09/24 22:11 12/10/24 08:15 Apixaban 2.5 Mg Tablet PO 2.5 mg 0900,2200 RHEA Administration Benzonatate 100 mg 12/10/24 08:09 12/10/24 08:19 Benzonatate 100 Mg Capsule PO 100 mg TID PRN Administration Cough Ceftriaxone Sodium 1 gm 12/08/24 09:00 12/10/24 08:15 Ceftriaxone 1 Gm Vial IVP 1 gm DAILY RHEA Administration Furosemide 60 mg 12/08/24 09:00 12/10/24 08:15 Furosemide 20 Mg Tablet PO 60 mg DAILY RHEA Administration Lactulose 30 gm 12/09/24 22:12 12/10/24 14:26 Lactulose 10 Gm /15 Ml Udc PO 30 gm 0600,1400,2100 RHEA Administration Ondansetron HCl 4 mg 12/07/24 19:31 Ondansetron Odt 4 Mg Tablet TL Q6HR PRN Nausea / Vomiting Ondansetron HCl 4 mg 12/07/24 19:31 Ondansetron 4 Mg/2 Ml Vial IVP Q6HR PRN Nausea / Vomiting Patient Own Med ( 1 each 12/08/24 21:00 12/09/24 21:08 Nortriptyline 10 Mg PO Not Given Capsule) RHEA Rifaximin 550 mg 12/09/24 22:13 12/10/24 08:19 Rifaximin 550 Mg Tablet PO 550 mg 0900,2200 RHEA Administration Sodium Chloride 10 ml 12/07/24 19:31 Sodium Chloride Flush 0.9% 10 Ml Syringe IVP PRN PRN NEEDED PER PROVIDER ORDERS Sodium Chloride 10 ml 12/08/24 01:00 12/10/24 17:10 Sodium Chloride Flush 0.9% 10 Ml Syringe IVP 10 ml 0100,0900,1700 RHEA Administration Spironolactone 100 mg 12/08/24 09:00 12/10/24 08:15 Spironolactone 25 Mg Tablet PO 100 mg DAILY RHEA Administration Objective Vital Signs/Intake & Output Reviewed Vital Signs: Yes Vital Signs: Vital Signs x48h Temp Pulse Resp BP Pulse Ox 12/10/24 16:30 36.7 C 66 20 108/65 98 Intake & Output: Intake & Output 12/07/24 12/08/24 12/09/24 12/10/24 23:59 23:59 23:59 23:59 Intake Total 336 / 336 3803 / 3803 1340 / 1340 1710 / 1710 Output Total 200 / 200 Balance 336 / 336 3603 / 3603 1340 / 1340 1710 / 1710 Weight (kg) 89.5 kg Objective General Appearance: positive No acute distress and Alert Eyes Bilateral: positive Normal inspection Neck: positive Nml inspection Respiratory: positive No respiratory distress and Breath sounds nml; negative Wheezes Cardiovascular: positive Regular rate & rhythm, No murmur and No gallop Abdomen: positive Non-tender, No organomegaly and Nml bowel sounds; negative No distention Skin: positive Color nml Extremities: positive Non-tender, Nml appearance and No pedal edema Neurologic/Psychiatric: positive CN's nml (2-12), Motor nml, Mood/affect nml and Disoriented to time; negative Disoriented to person, Disoriented to place, Slurred/abnml speech or Depressed mood/affect Lab Results 12/10/24 05:21 12/10/24 05:21 Other Labs: Lab Results x24hrs 12/10/24 Range/Units 05:21 WBC 8.3 (4.8-10.8) x10^3/uL RBC 4.58 L (4.70-6.10) 10^6/uL Hgb 13.6 L (14.0-18.0) g/dL Hct 39.7 L (42.0-52.0) % MCV 86.7 (80.0-94.0) fL MCH 29.7 (27.0-31.0) pg MCHC 34.3 (32.0-36.0) g/dL RDW 17.2 H (12.0-15.0) % Plt Count 146 (130-450) 10^3/uL MPV 9.1 (7.4-11.4) fL Neut # (Auto) 5.6 (1.5-6.6) 10^3/uL Lymph # (Auto) 1.1 L (1.5-3.5) 10^3/uL [place] # (Auto) 1.2 H (0.0-1.0) 10^3/uL Eos # (Auto) 0.2 (0.0-0.7) 10^3/uL Baso # (Auto) 0.1 (0.0-0.1) 10^3/uL Absolute Nucleated RBC 0.00 x10^3/uL Nucleated RBC % 0.0 /100WBC Sodium 130 L (135-145) mmol/L Potassium 3.9 (3.5-4.5) mmol/L Chloride 102 (101-111) mmol/L Carbon Dioxide 23 (21-32) mmol/L Anion Gap 5.0 L (6-13) BUN 18 (6-20) mg/dL Creatinine 1.0 (0.6-1.3) mg/dL Estimated GFR (MDRD) 74 L (>89) Glucose 116 H (74-104) mg/dL Calcium 8.6 (8.5-10.3) mg/dL Ammonia 177.9 H* (18-72) umol/L Diagnostic Imaging Diagnostic Imaging Results: positive Final report reviewed Assessment/Plan Problem List (1) Acute hepatic encephalopathy: Impression: * Improved * Ammonia was trending down, but increased again to 177 * Continue lactulose and titrate to 3 bowel movements per day * Continue rifaximin * Anticipate d/c if ammnoia trends down (2) Abdominal pain: Impression: * Resolved Qualifiers: Abdominal location: unspecified location Qualified Code(s): R10.9 - Unspecified abdominal pain (3) Hx of hepatitis C: Impression: * Chronic (4) Cirrhosis: Impression: * Chronic cirrhosis currently relatively well compensated with the exception of hepatic encephalopathy * Resume home medications including spironolactone and lactulose and discontinue IV fluids Qualifiers: Hepatic cirrhosis type: unspecified hepatic cirrhosis Ascites presence: with ascites Qualified Code(s): K74.60 - Unspecified cirrhosis of liver; R18.8 - Other ascites (5) DVT (deep venous thrombosis): Impression: * Resume eliquis Qualifiers: DVT location: non-extremity vein Chronicity: chronic Qualified Code(s): I82.91 - Chronic embolism and thrombosis of unspecified vein
[2024-12-11 05:56] LABS: BASOPHILS # (AUTO) 0.1 10^3/uL (0.0-0.1); BASOPHILS % (AUTO) 0.8 %; EOSINOPHILS # (AUTO) 0.3 10^3/uL (0.0-0.7); EOSINOPHILS % (AUTO) 3.3 %; HCT - HEMATOCRIT 39.2 % (42.0-52.0); HGB - HEMOGLOBIN 13.8 g/dL (14.0-18.0); MEAN CORPUSCULAR HEMOGLOBIN 30.2 pg (27.0-31.0); MEAN CORPUSCULAR HGB CONC 35.2 g/dL (32.0-36.0); MEAN CORPUSCULAR VOLUME 85.8 fL (80.0-94.0); MEAN PLATELET VOLUME 9.7 fL (7.4-11.4); MONOCYTES # (AUTO) 1.4 10^3/uL (0.0-1.0); MONOCYTES % (AUTO) 18.3 %; NEUTROPHILS # (AUTO) 4.9 10^3/uL (1.5-6.6); NEUTROPHILS % (AUTO) 64.3 %; PLT - PLATELET COUNT 159 10^3/uL (130-450); RED BLOOD COUNT 4.57 10^6/uL (4.70-6.10); RED CELL DISTRIBUTION WIDTH 17.2 % (12.0-15.0); WHITE BLOOD COUNT 7.7 x10^3/uL (4.8-10.8)
[2024-12-11 06:11] LABS: CALCIUM 8.4 mg/dL (8.5-10.3); POTASSIUM 3.7 mmol/L (3.5-4.5)
[2024-12-11 08:25] VITALS: BP 130/78; TEMP 98.2; O2SAT 97
--- NOTE | 2024-12-11 11:52 | Discharge Summary ---
Discharge Summary Admit Date: 12/07/24 Discharge Date: 12/11/24 Discharging Provider: Percy Senior MD Primary Care Provider: JUNIOR RODRÍGUEZ PA-C Code Status: Attempt Resuscitation DIAGNOSES Admission Diagnoses: Acute hepatic encephalopathy Abdominal pain Hep C Cirrhosis of the liver Hx of DVT Discharge Diagnoses with Status of Each Condition: Hepatic encephalopathyimproved History of hep Cstable Liver cirrhosisstable History of DVTstable HPI History of Present Illness: Patient is a 69-year-old male with a history of known cirrhosis due to hepatitis C who presented due to confusion. His sister, whom he lives with, is at bedside and provides most of the history. She states that starting Saturday, he began to act a little bit funny. He was confused about his surroundings. He is usually very independent, takes his medications on his own. She is not sure if he missed any doses of his lactulose or his rifaximin. She is not sure why he is on Eliquis. He had an appointment with the [facility] today for a liver MRI, which they could not go to because he was so confused, and would not let her dress him. As such, she came in here. Although the patient is alert and oriented x 2, he is very confused, and drifts off or becomes lethargic. He denies any pain. When asked why he is in the hospital, he states it is because he does not feel good, but is unable to elaborate. He does state that he feels confused and out of it. In the emergency room, patient was vitally stable, blood pressure was 138/60, heart rate was 70, respiratory rate was 18, he was saturating 98% on room air. He was also afebrile. Lab work was reviewedhis white count was within normal limits at 9.3. His INR is elevated at 1.5, and PT is elevated at 17.1. His BMP shows a sodium of 134, and his creatinine is within normal limits. Glucose is 118. Bilirubin is mildly elevated at 2.3. AST is also elevated at 53. Alkaline phosphatase is 148. Ammonia is also elevated at 207.3. His UA is negative. And his RUDS as well as alcohol levels are negative. An ultrasound of the abdomen is ordered, remains pending. HOSPITAL COURSE Hospital Course: Patient was admitted to the medical floor. By the next morning on rounds his abdominal pain had resolved. This did not require any intervention. He was maintained on rifaximin and lactulose and his dose was increased from 20 mg to 30 mg 3 times daily.Initially his mentation was still encephalopathic for the first 36 to 48 hours of the hospital stay but this gradually improved. His ammonia level was also monitored during the hospital stay and initially he had a significant improvement from the admission ammonia of 164 which decreased to 94 after admission. However this again increased to 177 on day 3 of hospitalization despite the fact that his mentation had significantly improved. Because of the concern for increase of ammonia level again, he was kept an additional night in the hospital where the ammonia level was rechecked and found to be 153. On this day his mentation was again improved and he was alert and oriented x 3 and able to review instructions for administration of lactulose and other components of his health care. He confirmed that his sister was with him and provides assistance in things such as taking his medications and going to doctors visits. Given that he was clinically much improved and likely at mental status baseline, he was deemed to be safe for discharge even though his ammonia level was still elevated at 153. It is worth considering that this patient will likely have a baseline level of ammonia that is above normal. Although this will be useful to monitor on occasions in which she presents encephalopathic, it is not likely that his level will directly correlate to baseline mental status as able probably never return to completely normal limits. Patient is advised to follow-up with his PCP and his [facility] with whom he is being managed for possible liver transplant. ALLERGIES Allergies Allergy/AdvReac Type Severity Reaction Status Date / Time No Known Drug Allergies Allergy Verified 12/07/24 14:18 MEDICATIONS Ambulatory Orders Medication Instructions Recorded Confirmed rifaximin 550 mg tablet (Xifaxan) 550 mg PO BID 12/07/24 spironolactone 100 mg tablet 100 mg PO DAILY 06/13/23 12/07/24 (Aldactone) furosemide 20 mg tablet 60 mg PO DAILY 12/07/2411/26 apixaban 2.5 mg tablet (Eliquis) 2.5 mg PO 0900,2200 3 0 days #60 12/11/24 tabs lactulose 10 gram/15 mL oral 30 g (45 mL) PO 0600,1400 ,2100 12/11/24 solution #600 mL PHYSICAL EXAM AT DISCHARGE Vital Signs: Vital Signs x48h Temp Pulse Resp BP Pulse Ox 12/11/24 08:24 36.8 C 64 18 130/78 97 General Appearance: positive No acute distress and Alert Respiratory: positive No respiratory distress and Breath sounds nml; negative Wheezes Cardiovascular: positive Regular rate & rhythm, No murmur and No gallop Abdomen: positive Non-tender, No organomegaly, Nml bowel sounds and No distention Skin: positive Color nml Extremities: positive Nml appearance Neurologic/Psychiatric: positive Oriented x3, CN's nml (2-12) and Motor nml LABS 12/11/24 05:36 12/11/24 05:36 Other Lab Results: DIAGNOSTIC IMAGING Diagnostic Imaging Results: Final report reviewed FOLLOW UP Follow Up: Follow-up with PCP next week and with [facility] when able to TIME SPENT Time Spent in Discharge (Minutes): 42 Discharge Plan Discharge Patient Disposition: 50 Hospice/Home DC/Xfer Condition: Good Medically Cleared Date:: 12/11/24 Prescriptions: New lactulose 10 gram/15 mL Solution 30 g PO 0600,1400,2100 Qty: 600 1RF Eliquis 2.5 mg Tablet 2.5 mg PO 0900,2200 30 Days Qty: 60 0RF Continued spironolactone [Aldactone] 100 MG tablet 100 mg PO DAILY Xifaxan 550 MG tablet 550 mg PO BID furosemide 20 mg tablet 60 mg PO DAILY Patient Comments: TAKE THREE TABLETS BY MOUTH DAILY Discontinued Eliquis 5 mg tablet 5 mg PO Q12H lactulose 10 gram/15 mL solution 45 ml PO TID Patient Comments: Take 45 mLs by mouth 3 times daily Activity Restrictions: Activity as Tolerated Diet: Low Sodium Health Concerns: You were admitted to the hospital because of a condition called hepatic encephalopathy. This is a condition in which due to your liver failure, abnormally high levels of ammonia can be built up into the bloodstream. This is because liver is responsible for clearing it from your body, but with liver disease it is unable to do so effectively. In order for the body to clear ammonia, it will expel most of it through the stool. Therefore, we prescribed medication called lactulose which when taken will increase your number of bowel movements through the day to help lower the ammonia level. Because it appears that your ammonia level was too high when you came in, we are going to increase the dose of lactulose that you normally take at home. From now on, please take the new dose of 30 g of lactulose 3 times daily. When you do this, I would like for you to have 3-4 bowel movements per day. If you are not having 3-4 bowel movements per day, you can increase the lactulose to 4 times daily instead of 3 times daily. In addition to this, I want you to continue taking the other medication called rifaximin which will continue to help with the same problem. Print Language: Urdu Patient Instructions: Lactulose oral solution, Cirrhosis Stand Alone Forms: PCP List Follow-up Care: JUNIOR RODRÍGUEZ PA-C [Physician No Access] - 12/15/24
== END 2024-12-11 13:45 | disposition home or self-care (01) | DRG 442 ==
LOC: ED 14:13 → MS2 14:13
PROVIDERS: ADMIT Internal Medicine; ATTEND Internal Medicine
DX: I82.90 Acute embolism and thrombosis of unspecified vein; I82.91 Chronic embolism and thrombosis of unspecified vein; F17.200 Nicotine dependence, unspecified, uncomplicated; K76.82 Hepatic encephalopathy; Z79.01 Long term (current) use of anticoagulants; R10.11 Right upper quadrant pain; R10.13 Epigastric pain; R18.8 Other ascites; Z86.19 Personal history of other infectious and parasitic diseases; K74.60 Unspecified cirrhosis of liver; Z79.899 Other long term (current) drug therapy